=== PATIENT | female | born 1980 | race Caucasian/White ===

== ENCOUNTER → 2017-10-16 16:42 | Outpatient (CLI) | payer OTHER, SELFPAY ==
[2017-10-16 17:47] LABS: hCG Titer Quant., Serum 886 mIU/mL (<9 non-preg)
== END ==
PROVIDERS: Visit Provider Obstetrics & Gynecology
DX: Z32.01 Encounter for pregnancy test, result positive (principal)
CPT/HCPCS: 36415; 84702

== ENCOUNTER → 2017-10-18 11:37 | Outpatient (CLI) | payer OTHER, SELFPAY ==
[2017-10-18 14:49] LABS: hCG Titer Quant., Serum 1867 mIU/mL (<9 non-preg)
== END ==
PROVIDERS: Visit Provider Obstetrics & Gynecology
DX: Z32.01 Encounter for pregnancy test, result positive (principal); Z3A.00 Weeks of gestation of pregnancy not specified
CPT/HCPCS: 36415; 84702

== ENCOUNTER → 2017-11-12 10:16 | Outpatient (CLI) | payer OTHER, SELFPAY ==
[2017-11-12 10:52] LABS: Color, Urine Yellow (Yellow); Glucose, Dipstick Normal (Normal); Ketone-Dipstick Negative (Negative); Leukocyte Esterase-Dipstick 25 /ul (Negative); Nitrite-Dipstick Negative (Negative); Occult Blood-Urine Negative /ul (Negative); Protein-Dipstick Negative (Negative); Urine Bilirubin Dipstick Negative (Negative); Urine Clarity Sl. Cloudy (Clear); Urine Urobilinogen Normal (Normal)
[2017-11-12 10:54] LABS: Absolute Lymphocyte Count 2.08 X10^3/ul (0.83-4.51); Basophil# 0.02 X10^3/uL; Basophil% 0.2 % (0-1); Eosinophil# 0.12 X10^3/uL; Eosinophils% 1.2 % (0-5); Hematocrit 41.6 % (37-47); Hemoglobin 14.1 g/dl (12.0-15.0); Lymphocyte # 2.08 X10^3/ul (4.0); Mean Corp Hgb Conc 33.9 g/gl (32-36); Mean Corpuscular Hgb 30.4 pg (27.0-32.0); Mean Corpuscular Volume 89.7 fL (81-99); Mean Platelet Vol. 10.2 fl (6.2-12.0); Monocyte# 0.66 X10^3/uL; Monocyte% 6.7 % (0-10); Neutrophil % 70.6 % (47-70); Platelet Count 282 K/mm3 (150-450); RBC Distribution Width CV 12.1 % (11.6-14.6); Red Blood Count 4.64 M/mm3 (4.2-5.4); White Blood Count 9.9 K/mm3 (4.4-11.0)
[2017-11-12 10:56] LABS: POSITIVE COUNT NO; POSITIVE DIFFERENTIAL NO; POSITIVE MORPHOLOGY NO
[2017-11-12 11:28] LABS: Thyroid Stim Hormone (TSH) 2.49 uIU/mL (0.358-3.74)
[2017-11-12 12:26] LABS: HIV - WCH Non-Reactive (Nonreactive); Rubella IgG 47.6 IU/mL
[2017-11-12 15:47] LABS: Chlamydia Trachomatis by PCR Negative (Negative); Neisserai gonorrhoeae by PCR Negative (Negative); Probe Check PASS; Sample Adequacy Control PASS; Specimen Processing Control PASS
[2017-11-13 11:22] LABS: HEPATITIS B SURFACE AG Negative (Negative); Hep C Antibodies <0.1 s/co ratio (0.0-0.9)
[2017-11-16 02:58] LABS: Prenatal RPR NONREACTIVE (NONREACTIVE)
[2017-11-16 14:17] LABS: HPV Reflexed? NOT INDICATED
[2017-11-18 06:16] LABS: PARVOVIRUS B19 IGG 5.2 index (0.0-0.8); PARVOVIRUS B19 IGM 0.1 index (0.0-0.8)
== END ==
PROVIDERS: Visit Provider Obstetrics & Gynecology
DX: Z34.81 Encounter for supervision of other normal pregnancy, first trimester (principal); Z12.4 Encounter for screening for malignant neoplasm of cervix; Z11.3 Encounter for screening for infections with a predominantly sexual mode of transmission; Z20.828 Contact with and (suspected) exposure to other viral communicable diseases
CPT/HCPCS: 36415; 81002; 84443; 85025; 86703; 86747; 86762; 86803; 87340; 87491; 87591; 88175; G0145

== ENCOUNTER → 2018-03-29 09:13 | Outpatient (CLI) | payer OTHER, SELFPAY ==
--- OUTSIDE RECORDS SUMMARY | 2018-03-29 09:49 | XMS RPT_ITS ---
:1980 Author Organization OHIP Support Name Relationship Address Phone NORSCH Unavailable [address] + [address] [place] [address] MIREILLE, GUILLERMO Unavailable [address] + [place] [address] NORSCH Unavailable [address] + [address] [place] [address] MIREILLE, GUILLERMO Unavailable [address] + [place] [address] NORSCH Unavailable [address] + [address] [place] [address] MIREILLE, GUILLERMO Unavailable [address] + [place] [address] NORSCH Unavailable [address] + [address] [place] [address] MIREILLE, GUILLERMO Unavailable [address] + [place] [address] NORSCH Unavailable [address] + [place] [address] MIREILLE, GUILLERMO Unavailable [address] + [place] [address] NORSCH Unavailable [address] + [place] [address] MIREILLE, GUILLERMO Unavailable [address] + [place] [address] NORSCH Unavailable [address] + [place] [address] MIREILLE, GUILLERMO Unavailable [address] + [place] [address] NORSCH Unavailable [address] + [place] [address] MIREILLE, GUILLERMO Unavailable [address] + [place] [address] NORSCH Unavailable [address] + [place] [address] MIREILLE, GUILLERMO Unavailable [address] + [place] [address] Care Team Providers Name Role Phone Francine Dior Attending Unavailable Martha Geronimo Attending Unavailable Nance, Jose Primary Care Unavailable Martha Geronimo Attending Unavailable Nance, Jose Primary Care Unavailable Martha Geronimo Attending Unavailable Nance, Jose Primary Care Unavailable Pepe Robledo Attending Unavailable Nance, Jose Primary Care Unavailable Martha Geronimo Attending Unavailable Nance, Jose Primary Care Unavailable Martha Geronimo Attending Unavailable Nance, Jose Primary Care Unavailable Juanpablo, Martha Attending Unavailable Francine Dior Attending Unavailable PROBLEMS PROBLEMS DATE TYPE CONDITION / CODE ATTENDING STATUS SOURCE 03/29/2018 Unknown Z34.82 - Encounter Francine Dior Active [facility] for supervision of [facility] other normal Hospital , second Repository trimester / Z34.82(ICD-10) 11/14/2017 Unknown Z34.81 - Encounter Martha Geronimo Active [facility] for supervision of Community other normal Hospital , first Repository trimester / Z34.81(ICD-10) 10/18/2017 Unknown Z32.01 - Encounter Martha Geronimo Active [facility] for test, [facility] result positive / Hospital Z32.01(ICD-10) Repository 07/31/2017 Unknown OTHER PRIMARY Sunitha Robledo THROMBOPHILIA / [facility] D68.59(ICD-10) Hospital Repository 07/31/2017 Unknown PREG CARE FOR Martha Geronimo [facility] PATIENT W RECURRENT Community PREG LOSS, [facility] Hospital TRIMESTER / Repository O26.20(ICD-10) 07/31/2017 Unknown FEMALE INFERTILITY, Martha Geronimo Active [facility] UNSPECIFIED / Community N97.9(ICD-10) Hospital Repository 07/31/2017 Unknown WEEKS OF GESTATION Martha Geronimo Active Corinne OF NOT Community SPECIFIED / Hospital Z3A.00(ICD-10) Repository 07/31/2017 Unknown SECONDARY Martha Geronimo Active [facility] AMENORRHEA / Community N91.1(ICD-10) Hospital Repository 07/31/2017 Unknown MISSED / Martha Geronimo Active [facility] O02.1(ICD-10) [facility] Hospital Repository 07/31/2017 Unknown ENCNTR SCREEN FOR Francine Dior Active [facility] INFECTIONS W SEXL Community MODE OF TRANSMISS / Hospital Z11.3(ICD-10) Repository PROCEDURES PROCEDURES No Procedure Records FoundRESULTS RESULTS URINE DRUG SCREEN Collected: 11/12/2017 Status: P Source: [facility] (VISTA) 10:23 AM [facility] REPOSITORY Order Comment: List of Drugs Taken or Suspected? UNK TYPE CODE TESTS RESULT OUT OF RANGE REFERENCE UNITS LAB L505.0075 Normal TO BE CONFIRMED Result Comment: CONFIRMATORY TESTING FOR ALL POSITIVE URINE DRUG SCREENRESULTS WILL ONLY BE SENT OUT UPON PHYSICIAN ORDER.VISTA Urine Drug Screen methods provide only preliminaryanalytical test results. A more specific alternate chemicalmethod must be used in order to obtain a confirmedanalytical result. Gas chromatography/mass spectrometery(GC/MS) is the preferred confirmatory method. Clinicalconsideration and professional judgement should be appliedto any drug of abuse test result, particularly whenpreliminary positive results are used.URINE TCA TESTING MUST BE ORDERED SEPARATELY. USE TESTMNEMONIC: UTCA Performed By: #### L505.4999 ####[facility] [address] [facility] [place], [address] URINALYSIS, ROUTINE Collected: 11/12/2017 Status: F Source: [facility] (DIPSTICK) 10:23 AM [facility] REPOSITORY Order Comment: How was Urine Obtained? Urine, Random TYPE CODE TESTS RESULT OUT OF RANGE REFERENCE UNITS LAB L400.3000 Normal Yellow COLOR Yellow LAB L400.3050 Normal Clear CLARITY Sl. Cloudy LAB L400.3200 Normal Normal mg/dl GLUCOSE, UR Normal LAB L400.3300 Normal Negative mg/dL BILIRUBIN Negative URINE LAB L400.3400 Normal Negative mg/dl KETONE UR Negative LAB L400.3465 Normal 1.002-1.030 SP.GR. 1.010 DIPSTX LAB L400.3550 Normal 5.0 - 8.0 pH UR 7.0 LAB L400.3600 Normal Negative mg/dl PROT DIPSTX Negative LAB L400.3700 Normal Normal mg/dl UROBILI Normal LAB L400.3750 Normal Negative NITRITE UR Negative LAB L400.3780 Normal Negative /ul OCCULT Negative BLOOD-UR LAB L400.3800 High Negative /ul LEUK 25 ESTERASE Performed By: #### L400.2010 ####[facility] [address] [place], [address] CBC W/DIFF, AUTOMATED Collected: 11/12/2017 Status: F Source: [place] 10:23 AM [facility] REPOSITORY TYPE CODE TESTS RESULT OUT OF RANGE REFERENCE UNITS LAB L100.1000 Normal 4.4-11.0 K/mm3 WBC 9.9 LAB L100.1200 Normal 4.2-5.4 M/mm3 RBC 4.64 LAB L100.1300 Normal 12.0-15.0 g/dl HGB 14.1 LAB L100.1400 Normal 37-47 % HCT 41.6 LAB L100.1500 Normal 81-99 fL MCV 89.7 LAB L100.1600 Normal 27.0-32.0 pg MCH 30.4 LAB L100.1700 Normal 32-36 g/gl MCHC 33.9 LAB L100.1810 Normal 11.6-14.6 % RDW 12.1 CV LAB L100.1820 Normal 35.1-43.9 fl RDW 39.0 SD LAB L100.1900 Normal 150-450 K/mm3 PLT 282 LAB L100.2000 Normal 6.2-12.0 fl MPV 10.2 LAB L100.2100 High 47-70 % NEUT% 70.6 LAB L100.2200 Normal 19-41 % LY% 21.0 LAB L100.2300 Normal 0-10 % MONO% 6.7 LAB L100.2400 Normal 0-5 % EO% 1.2 LAB L100.2500 Normal 0-1 % BASO% 0.2 LAB L100.2550 Normal 0.0-0.9 % IM 0.300 GRAN % Result Comment: IG% - Immature Granulocytes (promyelocytes, myelocytes andmetamyelocytes) > 1% indicates that a LEFT SHIFT is Present. LAB L100.2620 Normal 2.0-7.7 X10 3/uL Absolute Neut 7.0 LAB L100.2720 Normal 0.83-4.51 X10 3/ul Absolute Lymph 2.08 Performed By: #### L100.0100 ####[facility] [address] [place], [address] THYROID STIM HORMONE Collected: 11/12/2017 Status: F Source: [facility] (TSH) 10:23 AM [facility] REPOSITORY TYPE CODE TESTS RESULT OUT OF RANGE REFERENCE UNITS LAB L501.9520 Normal 0.358-3.74 uIU/mL TSH 2.49 Performed By: #### L501.9520 ####[facility] [address] [place], [place], [address] T AND S-NO Collected: 11/12/2017 Status: F Source: [facility] CHARGE W/PNP 10:23 AM [facility] REPOSITORY Order Comment: Reason for Type AND Screen/Red Cells: PRENATALSurgery? N TYPE CODE TESTS RESULT OUT OF RANGE REFERENCE UNITS LAB B10.0800 Normal BLOOD O TYPE GEL NEGATIVE LAB B100.4050 Normal Ab NEGATIVE SCREEN GEL Performed By: #### B100.7550 ####[facility] [address] [place], [place], [address] RUBELLA IGG Collected: 11/12/2017 Status: F Source: [place] 10:23 AM [facility] REPOSITORY TYPE CODE TESTS RESULT OUT OF RANGE REFERENCE UNITS LAB L509.4000 Normal IU/mL Rubella 47.6 IgG Result Comment: Antibody results Interpretation of Immune Status < 5 IU/ml Presumed Non-immune 5 - < 10 IU/ml Equivocal > or = 10 IU/ml Presumed Immune Performed By: #### L509.4000, L3890.6005 ####[facility] [address] [place], [place], [address] HIV - [facility] Collected: 11/12/2017 Status: F Source: [place] 10:23 AM [facility] REPOSITORY TYPE CODE TESTS RESULT OUT OF RANGE REFERENCE UNITS LAB L3890.6005 Normal Nonreactive HIV - [facility] Non-Reactive Performed By: #### L509.4000, L3890.6005 ####[facility] [address] [place], [address] HEPATITIS B SURFACE Collected: 11/12/2017 Status: F Source: [facility] AG 10:23 AM [facility] REPOSITORY Order Comment: PARVO IGG AND IGM ADDED TO BLOOD AT [facility]. AYAN WILL FILLOUT ADD ON REQUEST AND FAX BACK TO [facility]. THANK YOU. TYPE CODE TESTS RESULT OUT OF RANGE REFERENCE UNITS LAB L3100.0400 Normal Negative HB Negative SURF AG Result Comment: Performed at: [address] [id number] Director: Jonathan Doss PhD, Phone: [phone] Performed By: #### L3100.0390, L3100.0625, L6999.2099 #### [facility] (refer to report for specific site)refer to report for address and phone number HEPATITIS C ANTIBODIES Collected: 11/12/2017 Status: F Source: [place] 10:23 AM [facility] REPOSITORY Order Comment: PARVO IGG AND IGM ADDED TO BLOOD AT [facility]. AYAN WILL FILLOUT ADD ON REQUEST AND FAX BACK TO [facility]. THANK YOU. TYPE CODE TESTS RESULT OUT OF RANGE REFERENCE UNITS LAB L3100.0650 Normal 0.0-0.9 s/co ratio HEP C <0.1 AB Result Comment: Negative: < 0.8 Indeterminate: 0.8 - 0.9 Positive: > 0.9 The CDC recommends that a positive HCV antibody result be followed up with a HCV Nucleic Acid Amplification test (554526). Performed By: #### L3100.0390, L3100.0625, L6999.2099 #### [facility] (refer to report for specific site)refer to report for address and phone number PARVOVIRUS B19 IGG Collected: 11/12/2017 Status: F Source: [place] AND IGM 10:23 AM [facility] REPOSITORY Order Comment: PARVO IGG AND IGM ADDED TO BLOOD AT [facility]. AYAN WILL FILLOUT ADD ON REQUEST AND FAX BACK TO [facility]. THANK YOU. TYPE CODE TESTS RESULT OUT OF RANGE REFERENCE UNITS LAB L7000.2200 High 0.0-0.8 index PARVO 5.2 B19 IGG Result Comment: Negative <0.9 Equivocal 0.9 - 1.1 Positive >1.1 LAB L7000.2300 Normal 0.0-0.8 index PARVO B19 IGM 0.1 Result Comment: Negative <0.9 Equivocal 0.9 - 1.1 Positive >1.1 Performed By: #### L3100.0390, L3100.0625, L7000.2100 #### [facility] (refer to report for specific site)refer to report for address and phone number RPR Collected: 11/12/2017 Status: F Source: [place] 10:23 AM [facility] REPOSITORY TYPE CODE TESTS RESULT OUT OF REFERENCE UNITS RANGE LAB L700.5100 Normal NONREACTIVE NONREACTIVE RPR Performed By: #### L700.5100 ####[facility] [address] [place], [address] CT/NG [facility] BY PCR Collected: 11/12/2017 Status: F Source: [place] 10:15 AM [facility] REPOSITORY TYPE CODE TESTS RESULT OUT OF RANGE REFERENCE UNITS LAB L8200.2100 Normal Negative Negative Chlam Trac PCR LAB L8200.2200 Normal Negative NG Negative by PCR Performed By: #### L8200.2000 ####[facility] [address] [place], [address] PAP I-G W/RFX HRHPV Collected: 11/12/2017 Status: F Source: [place] 10:15 AM [facility] REPOSITORY Order Comment: CYTOLOGY INFORMATION:- CLINICAL INFORMATION: - DATE LMP/MENOPAUSE: 09/18/17 LMP- COLLECTION VIAL: Thin Prep Vial- WEB GRAPHIC DESIGNER SOURCE: CERVICAL/ENDOCERVICAL- COLLECTION TECHNIQUE: BRUSH/SPATULASpecimen Comment: [id number] Comment: No. of containers..01 ThinPrep Vial TYPE CODE TESTS RESULT OUT OF RANGE REFERENCE UNITS LAB L7400.0800 Normal . DIAGN Comment Result Comment: NEGATIVE FOR INTRAEPITHELIAL LESION AND MALIGNANCY.THIS SPECIMEN WAS RESCREENED PART OF OUR MUSHROOM CULTIVATOR PROGRAM. LAB L7400.0900 Normal . ADEQ Comment Result Comment: Satisfactory for evaluation. Endocervical and/or squamous metaplasticcells (endocervical component) are present. LAB L7400.1400 Normal . PERFORM Comment Result Comment: Raj Junior, Operations Manager Assistant (ASCP) LAB L7400.1500 Normal . QC Comment REV Result Comment: Ailyn Childress, Operations Manager Assistant (ASCP) LAB L7400.2575 Normal . TEST Comment METHOD Result Comment: This liquid based ThinPrep(R) pap test was screened withthe use of an image guided system. LAB L7400.2600 Normal . COMM . LAB L7400.2700 Normal . PAPSMR Comment Result Comment: The Pap smear is a screening test designed to aid in thedetection of premalignant and malignant conditions of theuterine cervix. It is not a diagnostic procedure andshould not be used as the sole means of detecting cervicalcancer. Both false-positive and false-negative reports dooccur. LAB L7400.2800 Normal . HPV Comment RFLX Result Comment: The HPV DNA reflex criteria were not met with this specimenresult therefore, no HPV testing was performed.Performed at: [address] [id number] Director: Lian George MD, Phone: [phone] Performed By: #### L7400.0350 ####[facility] (refer to report for specific site)refer to report for address and phone number HCG TITER QUANT., Collected: 10/18/2017 Status: F Source: [place] SERUM 11:38 AM [facility] REPOSITORY TYPE CODE TESTS RESULT OUT OF RANGE REFERENCE UNITS LAB L700.8000 High <9 non-preg mIU/mL HCG 1867 QUANT. Performed By: #### L700.8000 ####[facility] [address] [facility]. [place], [place], [address] HCG TITER QUANT., Collected: 10/16/2017 Status: F Source: [place] SERUM 4:44 PM [facility] REPOSITORY TYPE CODE TESTS RESULT OUT OF RANGE REFERENCE UNITS LAB L700.8000 High <9 non-preg mIU/mL HCG 886 QUANT. Performed By: #### L700.8000 ####[facility] [address] [place], [address] PROTEIN S DEFIC. Collected: 07/04/2017 Status: F Source: [place] PROFILE 3:16 PM [facility] REPOSITORY Order Comment: Reason for Laboratory Test OFFICE VISIT - TEST #[id number] TYPE CODE TESTS RESULT OUT OF RANGE REFERENCE UNITS LAB L3100.7100 Normal 60-150 % PROTEIN 80 S,TOTAL Result Comment: This test was developed and its performance characteristicsdetermined by [employer]. It has not been cleared orapproved by the Food and Drug Administration. LAB L3100.7200 Normal 57-157 % PROTEIN S, FREE 70 Result Comment: This test was developed and its performance characteristicsdetermined by [employer]. It has not been cleared orapproved by the Food and Drug Administration. LAB L3100.7260 Normal 63-140 % PROTEIN S, FUNC 92 Result Comment: Protein S activity may be falsely increased (masking anabnormal, low result) in patients receiving direct Xainhibitor (e.g. , rivaroxaban, apixaban, edoxaban) or adirect thrombin inhibitor (e.g., dabigatran) anticoagulanttreatment due to assay interference by these drugs.Performed at: [address] [id number] Director: Sagar Irizarry MD, Phone: [phone] Performed By: #### L3100.7075 ####[facility] (refer to report for specific site)refer to report for address and phone number HISTORY AND PHYSICAL Observed: 07/04/2017 Status: F Source: [place] EXAM 2:47 PM [facility] REPOSITORY [facility] [address] [place], [place] [address]Uhufjse and Seofulty53/01/17 1420MR#: [id number] Acct: [id number]: LAURIE KENDRICK Rep #: [id number]: 1980 36 From: Pepe Robledo MDPCP: Jose Toribio MD Status: REG RCR YLocation: OMD(1) Protein S deficiencyStatus: AcuteSubjectiveDate of Service:: 07/04/17Chief Complaint: Low level of protein S following a miscarriageHistory of Present Illness:Patient is a 36-year-old female who is obstetric history can be summarized as: #1 uncomplicated and ended with the of a healthy boy in 2006. #2 ended in an early miscarriage at 6-7 weeks in 2009. #3 uncompleted and ended with the of a healthy boy and 2013. #4 in 2016 and ended with an early miscarriage at 8-9 weeks early April 2017Patient has no personal or family history of venous thromboembolic disease or prematurearterial thrombotic disease. She used control pills without complications for severalyears in the past.A hypercoagulability workup was obtained on May 24, 2017 following her miscarriage andrehildaaled a mildly low free protein S at 56% (normal 57-157%) repeat test on June 14, 2017showed a normal level protein S free antigen of 69%and protein S total antigen normal at 65% (normal 60-150%)The rest of her hypercoagulability testing was essentially negativePower of Assisted Sales Representative: NoLiving Will: NoHealth History:Cancer HistoryOther Cancer History: NONEPast Medical HistoryOther Past Medical History: NONE PER PATIENTPast Surgical HistoryOther Surgical History: D AND CFamily HistoryPaternal Past Medical History: Diabetes mellitus,Kidney diseaseMaternal Past Medical History: Diabetes mellitusSocial HistorySmoking Status Never smokerAllergies/Adverse Reactions:Allergy/AdvReac Type Severity Reaction Status Date / TimeNo Known Allergies Allergy Verified 07/04/17 14:03Home MedicationsMedication Instructions RecordedAspirin, Baby 81 mg PO DAILY 07/04/17Prenatal Gummies 1 tablet PO DAILY 07/04/17Risk FactorsTobacco Risk Data:Tobacco RiskSmoking Status Never smokerType of tobacco:Smokeless tobacco usage:Items/Day:Year started:Years used:Counseled to quit/cut down:Reason for no counselingperformed:Reason for no pharmacotherapy: Tobacco use comments:Passive smoke exposure:Substance RiskDrug use: NoCaffeine use [drinks/day]: 0Alcohol use: NoType of alcohol:Drinks per day:Has patient felt the need tocut down:Has the patient been annoyedby complaints:Has the patient felt guiltyabout drinking:Has the patient needed an eyeopener in the mornings:Comments:Date of last PAP smear:: 06/03/17Review of SystemsCardiovascular:: Reports: - - No lower extremities edema or varicosities. Denies: Chest pain,Palpitations, Dyspnea on exertion, Orthopnea, Shortness of breathRespiratory: Reports: - - No pleuritic type chest pain. Denies: Cough, Hemoptysis, Shortnessof BreathGastrointestinal:: Denies: Abdominal pain, HematocheziaGenitourinary: Denies: HematuriaNeurological:: Reports: - - No history of stroke or focal neurologic illnessObjectiveVital SignsHeight 1.59 mWeight: 52.617 kgWeight in Pounds 116.0 lbsPulse Ox 99- Physical ExamGeneral: Alert, Oriented x3, No apparent distressExtremities:: - - No varicosities. Negative for: Cyanosis, EdemaNeurological: Neuro grossly intactLaboratory Data:Outside lab coagulation studies reviewed and summarized under HPIAssessment and [id number] with 2 unexplained early losses (prior to 10-12 weeks). She has nopersonal or family history of venous thromboembolic disease or premature arterial vasculardisease. She also had to successful full-term pregnancies in 2006 and 2013 and used birthcontrol pills for several years in the past without complications.A mildly low protein S free was noted in May 2017 following loss in April2017. Repeat testing in June 2017 showed a normal level.Hereditary protein S deficiency is very uncommon with the frequency estimated to be less than1% of individuals with venous thromboembolic disease. Data is mixed regarding its role inmiscarriage. No levels of protein S are found in normal pregnancies, or miscarriageand an users of oral hormonal contraceptives.I advise a repeat screen for protein S deficiency today since the findings so far would notsupport a diagnosis of hereditary protein S deficiency. Shunt will be seen in follow-up oncethese results are availablePrimary Care Provider: Alexa Rodriguez Provider: [id number] <Electronically signed by Pepe Robledo MD>Date Pepe Robledo MDCosigner Signature (if applicable): Date CC: Martha Geronimo MD; Jose Toribio MD; Pepe Robledo MD Signed PROTEIN S ANTIGEN Collected: 06/14/2017 Status: F Source: [place] 5:03 PM [facility] REPOSITORY TYPE CODE TESTS RESULT OUT OF RANGE REFERENCE UNITS LAB L3100.7100 Normal 60-150 % PROTEIN 65 S,TOTAL Result Comment: This test was developed and its performance characteristicsdetermined by [facility]. It has not been cleared orapproved by the Food and Drug Administration. LAB L3100.7200 Normal 57-157 % PROTEIN S, FREE 69 Result Comment: This test was developed and its performance characteristicsdetermined by [facility]. It has not been cleared orapproved by the Food and Drug Administration.Performed at: [address] [id number] Director: Sagar Irizarry MD, Phone: [phone] Performed By: #### L3100.7050 ####[facility] (refer to report for specific site)refer to report for address and phone number HEMOGLOBIN A1C Collected: 05/24/2017 Status: F Source: [place] 4:43 PM [facility] REPOSITORY TYPE CODE TESTS RESULT OUT OF RANGE REFERENCE UNITS LAB L501.9985 Normal 4.2-6.3 % HGB 5.4 A1C Performed By: #### L501.9985 ####[facility] [address] [place], [place], [address] FREE T3 Collected: 05/24/2017 Status: F Source: [place] 4:43 PM [facility] REPOSITORY Order Comment: CYCLE DAY Has Patient had X-rays with Contrast this admission? NIs Patient on Heparin? N TYPE CODE TESTS RESULT OUT OF RANGE REFERENCE UNITS LAB L501.42528 Normal 2.18-3.98 pg/mL FREE 2.5 T3 Performed By: #### L501.61882, L501.9520, L506.0400, L3300.1750 ####[facility] [address] [place], [place], [address] THYROID STIM HORMONE Collected: 05/24/2017 Status: F Source: [place] (TSH) 4:43 PM [facility] REPOSITORY Order Comment: CYCLE DAY 19Has Patient had X-rays with Contrast this admission? NIs Patient on Heparin? N TYPE CODE TESTS RESULT OUT OF RANGE REFERENCE UNITS LAB L501.9520 Normal 0.358-3.74 uIU/mL TSH 2.17 Performed By: #### L501.23912, L501.9520, L506.0400, L3300.1750 ####[facility] [address] [place], [address] T4 FREE DIRECT Collected: 05/24/2017 Status: F Source: [place] 4:43 PM [facility] REPOSITORY Order Comment: CYCLE DAY 19Has Patient had X-rays with Contrast this admission? NIs Patient on Heparin? N TYPE CODE TESTS RESULT OUT OF RANGE REFERENCE UNITS LAB L506.0400 Normal 0.76-1.46 ng/dL T4 FREE 1.04 DIRECT Performed By: #### L501.88902, L501.9520, L506.0400, L3300.1750 ####[facility] [address] [place], [address] ESTRADIOL Collected: 05/24/2017 Status: F Source: [place] 4:43 PM [facility] REPOSITORY Order Comment: CYCLE DAY 19Has Patient had X-rays with Contrast this admission? NIs Patient on Heparin? N TYPE CODE TESTS RESULT OUT OF RANGE REFERENCE UNITS LAB L3300.1750 Normal pg/mL ESTRADIOL 82.5 Result Comment: NORMAL REFERENCE RANGES FEMALE FOLLICULAR 21.4 - 164.8 pg/mL MID-CYCLE PEAK 49.9 - 367.2 pg/mL LUTEAL 40.2 - 259.0 pg/mL POST-MENOPAUSAL ON MHT <11.0 - 462.1 pg/mL NOT ON MHT <11.0 - 58.3 pg/mL MALE <11.0 - 52.5 pg/mLNOTE:[facility] HAS CONFIRMED THE DRUG FULVETRANT (FASLODEX) MAYCAUSE FALSELY ELEVATED ESTRADIOL RESULTS WHEN USING THISTEST METHOD. IF PATIENT IS TAKING FULVESTRANT AN ALTERNATIVEMETHOD SHOULD BE USED TO DETERMINE ESTRADIOL CONCENTRATION. Performed By: #### L501.44297, L501.9520, L506.0400, L3300.1750 ####[facility] [address] [place], [place], [address] PROGESTERONE LEVEL Collected: 05/24/2017 Status: F Source: [place] 4:43 PM [facility] REPOSIT[facility] TYPE CODE TESTS RESULT OUT OF REFERENCE UNITS RANGE LAB L509.4001 Normal See Comment ng/mL Progesterone 15.85 Result Comment: Progesterone Reference Table: UNITS Female: Follicular 0.15 - 1.40 ng/mL Luteal 3.34 - 25.56 ng/mL Mid-luteal 4.44 - 28.03 ng/mL Postmenopausal 0.0 - 0.73 ng/mL : 1st Trimester 11.22 - 90.00 ng/mL 2nd Trimester 25.55 - 89.40 ng/mL 3rd Trimester 48.40 -422.50 ng/mL Performed By: #### L509.4001, L509.3000 ####[facility] [address] [place], [place], [address] TESTOSTERONE, SERUM TOTAL Collected: 05/24/2017 Status: F Source: [place] 4:43 PM [facility] REPOSITORY TYPE CODE TESTS RESULT OUT OF REFERENCE UNITS RANGE LAB L509.3000 Normal 14-76 ng/dL Testosterone 53 Performed By: #### L509.4001, L509.3000 ####[facility] [address] [place], [place], [address] FACT V LEIDEN Collected: 05/24/2017 Status: F Source: [place] MUTATION 4:43 PM [facility] REPOSITORY TYPE CODE TESTS RESULT OUT OF RANGE REFERENCE UNITS LAB L4500.5100 Normal . Comment FACTOR V LEIDEN Result Comment: Result: Negative (no mutation found) Factor V Leiden is a specific mutation (R506Q) in the factorV gene that is associated with an increased risk of venousthrombosis. Factor V Leiden is more resistant toinactivation by activated protein C. As a result, factor Vpersists in the circulation leading to a mild hyper-coagulable state. The Leiden mutation accounts for 90% -95% of APC resistance. Factor V Leiden has been reported inpatients with deep vein thrombosis, pulmonary embolus,central retinal vein occlusion, cerebral sinus thrombosisand hepatic vein thrombosis. Other risk factors to beconsidered in the workup for venous thrombosis include [id number] mutation in the factor II (prothrombin) gene, protein S and C deficiency, and antithrombin deficiencies.Anticardiolipin antibody and lupus anticoagulant analysismay be appropriate for certain patients, as well ashomocysteine levels.Contact your local [facility] for information on how to orderadditional testing if desired. LAB L4500.5200 Normal . COMMENT Comment Result Comment: Genetic counselors are available for health careproviders to discuss results at [phone]:DNA analysis of the Factor V gene was performed by allele-specific PCR. The diagnostic sensitivity and specificity is>99% for both. Molecular-based testing is highly accurate,but as in any laboratory test, diagnostic errors may occur.All test results must be combined with clinical informationfor the most accurate interpretation.This test was developed and its performance characteristicsdetermined by [facility]. It has not been cleared or approvedby the Food and Drug Administration.References:Robert Lara (1995). Clin Lab Med 16:169- 186.Katty Wong, PhD, Dimple Bernardo, PhD, Jimmy Hodges, PhD, oJse Blanchard MJessicaSJessica, PhD, Cathie Castro, PhD, Luis Song, PhD, Noreen Rhodes PhD, FACMGPerformed at: [facility] [id number] [place], [place] [id number] Director: Juni Lugo MD, Phone: [phone] Performed By: #### L4500.5000 ####[facility] (refer to report for specific site)refer to report for address and phone number THROMBOTIC RISK Collected: 05/24/2017 Status: F Source: [place] PROFILE 4:43 PM [facility] REPOSITORY TYPE CODE TESTS RESULT OUT OF RANGE REFERENCE UNITS LAB L804.3000 Normal 2.0-3.5 ratio APCR 2.1 Result Comment: The APCR result may be falsely increased ( masking anabnormal, low APCR result) in patients on direct Xainhibitor (e.g., rivaroxaban, apixaban, edoxaban) or adirect thrombin inhibitor (e.g., dabigatran) anticoagulanttherapy due to assay interference by these drugs. LAB L804.4100 Normal 0.0-55.0 sec dPT 39.8 LAB L804.4200 Normal 0.00-1.40 Ratio dPT % 0.97 LAB L3100.7200 Low 57-157 % PROTEIN S, FREE 56 Result Comment: This test was developed and its performance characteristicsdetermined by [employer]. It has not been cleared orapproved by the Food and Drug Administration.A deficiency of free protein S antigen (FPS), eithercongenital or acquired, increases the risk ofthromboembolism. Acquired FPS deficiency is more commonthan congenital deficiency. Acquired deficiency can occuras a result of vitamin K deficiency or antagonism, severehepatic disorders ( hepatitis, cirrhosis, etc.), nephroticsyndrome, inflammatory bowel disease, certainchemotherapeutic agents, L-asparaginse therapy, sepsis,disseminated intravascular coagulation (DIC) and acutethrombosis. FPS values decrease with normal , andare also dependent on age, sex and hormone status. FPSvalues tend to be lower in a younger age group and lower inwomen than in men. Levels may be decreased inpre-menopausal women on oral contraceptive agents. Levelsmay be decreased in patients with polycythemia vera, sicklecell disease and essential thombocythemia. Repeatevaluation on a new plasma sample to confirm or refute thisresult should be considered, after ruling out acquiredcauses, depending on the clinical scenario. LAB L3100.7325 Normal 73-180 % PROT C, Funct 128 LAB L3100.8420 Normal 0-14 GPL U/mL ANTICARDIO IgG < 9 Result Comment: Negative: <15 Indeterminate: 15 - 20 Low-Med Positive: >20 - 80 High Positive: & gt;80 LAB L3100.8425 Normal 0-12 MPL U/mL ANTICARDIO IgM < 9 Result Comment: Negative: <13 Indeterminate: 13 - 20 Low-Med Positive: >20 - 80 High Positive: & gt;80 LAB L3300.0500 Normal 75-135 % AT3 FUNCTION 126 Result Comment: Direct thrombin inhibitor anticoagulants such asrivaroxaban, apixaban and edoxaban will lead to spuriouslyelevated antithrombin activity levels possibly masking adeficiency. LAB L3300.2000 Normal 0.0-15.0 umol/L HOMOCYSTEINE 7.1 LAB L3400.3200 Normal 70-150 % Plasminogen Act 125 LAB L3410.2100 Normal 0-20 B2 GLYCO I IGG <9 Result Comment: Result Units: GPI IgG unitsThe reference interval reflects a 3SD or 99th percentileinterval, which is thought to represent a potentiallyclinically significant result in accordance with theInternational Consensus Statement on the classificationcriteria for definitive antiphospholipid syndrome (APS). JThromb Haem 2006;4:295-306. LAB L3410.2300 Normal 0-32 B2 <9 GLYCO I IGM Result Comment: Result Units: GPI IgM unitsThe reference interval reflects a 3SD or 99th percentileinterval, which is thought to represent a potentiallyclinically significant result in accordance with theInternational Consensus Statement on the classificationcriteria for definitive antiphospholipid syndrome (APS). JThromb Haem 2006;4:295-306. LAB L4500.0605 Normal 0.0-51.9 sec PTT-LA 34.4 LAB L4500.1015 Normal 0.0-47.0 sec DRVVT 32.5 LAB L4500.1310 Normal . Interpretation Comment: Result Comment: No lupus anticoagulant was detected. LAB L4500.2600 Normal . COMMENT Comment Result Comment: NEGATIVENo mutation identified.Comment:A point mutation ([id number]) in the factor II (prothrombin)gene is the second most common cause of inheritedthrombophilia. The incidence of this mutation in the [place] population is about 2% and in the AfricanAmerican population it is approximately 0.5%. This mutationis rare in the and population. Beingheterozygous for a prothrombin mutation increases the riskfor developing venous thrombosis about 2 to 3 times abovethe general population risk. Being homozygous for theprothrombin gene mutation increases the relative risk forvenous thrombosis further, although it is not yet known howmuch further the risk is increased. In women heterozygousfor the prothrombin gene mutation, the use of estrogencontaining oral contraceptives increases the relative riskof venous thrombosis about 16 times and the risk ofdeveloping cerebral thrombosis is also significantlyincreased. In the prothrombin gene mutationincreases risk for venous thrombosis and may increaserisk for stillbirth, placental abruption, pre-eclampsia andfetal growth restriction. If the patient possesses two ormore congenital or acquired thrombophilic risk factors, therisk for thrombosis may rise to more than the sum of therisk ratios for the individual mutations. This assaydetects only the prothrombin [id number] mutation and doesnot measure genetic abnormalities elsewhere in thegenome. Other thrombotic risk factors may be pursuedthrough systematic clinical laboratory analysis. Thesefactors include the R506Q (Leiden) mutation in the Factor Vgene, plasma homocysteine levels, as well as testing fordeficiencies of antithrombin III, protein C and protein S.Genetic Counselors are available for health care providersto discuss results at [phone] ([phone]).Methodology:DNA analysis of the Factor II gene was performed by PCRamplification followed by restriction analysis. Thediagnostic sensitivity is >99% for both. All the tests mustbe combined with clinical information for the most accurateinterpretation. Molecular-based testing is highly accurate,but as in any laboratory test, diagnostic errors may occur.This test was developed and its performance characteristicsdetermined by [employer]. It has not been cleared or approvedby the Food and Drug Administration.Poort SR, et al. Blood. 1996; 88:8459-7983.Blanka EA. Circulation. 2004; 110:e15-e18.Asmita I, et al. Arterioscler Thromb Vasc Biol. 1999;19:700-703.Katty Wong, PhD, Dimple Bernardo, PhD, Jimmy Hodges, PhD, Jose Blanchard M.S., PhD, Cathie Castro, PhD, Luis Song, PhD, Noreen Rhodes, PhD, FACMGPerformed at: [facility] [id number] Director: Jonathan Doss PhD, Phone: [phone] at: [facility] [id number] Director: Sagar Irizarry MD, Phone: [phone] at: [facility]CoMemorial [facility] CenterQMB[address] [place], [place] [address]Fau Director: Juni Lugo MD, Phone: [phone] Performed By: #### L803.4000 ####[facility] (refer to report for specific site)refer to report for address and phone number OPERATIVE REPORT Observed: 04/12/2017 Status: F Source: [place] 3:58 PM [facility] REPOSITORY [facility] [address] [place] [address]Htriztnko Qrfepu13/10/17 1551MR#: [id number] Acct: [id number]: LAURIE KENDRICK Rep #: [id number]: 1980 36 From: Martha Geronimo MDPCP: Jose Toribio MD Status: REG [facility] YLocation: AC [id number] List(1) Missed abortionStatus: AcuteReport of OperationDate of Procedure: 04/12/17Pre-Operative Diagnosis: missed abPost-Operative Diagnosis: missed abSurgery/Procedure Performed:: Suction D and CDescription of Surgical Findings::Uterus found to be in the retroflexed position. The uterus measured approximately 9 cm.Bilateral adnexa were benign upon examination. The cervix was noted to be benign uponexamination. Cervix was easily dilated to accommodate a 7 curved suction device.Type of Anesthesia:: MAC - 1% lidocaine to the cervix 10cc totalAnesthesiologist: Ro Dwyer'rafa removed: Products of conceptionEstimated Blood Loss (mL): minimalFluids Replaced: Lactated ringersDescription of Procedure:Patient is a 36-year-old multigravid white female who presents with missed AB dated atapproximately 6 weeks estimated gestational age. Patient had undergone multiple ultrasounds toverify the missed AB. The patient had been given options of self passage of the products ofconception versus a suction D AND C. The preop preparation for the suction D AND C along withintraoperative procedures as well as the postop time period were reviewed with the patient.The risk of bleeding, infection and uterine perforation were reviewed with the patient.Consents were obtained all was accepted. On the day of surgery patient presented after being 8hours minimum n.p.o. status.Patient was taken to the operating suite where she underwent a MAC anesthetic. Once a MACanesthetic was noted to be adequate she was placed in the dorsal lithotomy position. Thepatient was then prepped and draped in the normal sterile fashion. A weighted speculum wasplaced to the vaginal vault area. The bladder had been emptied of all remaining urine with astraight catheter prior to weighted speculum being placed. The anterior lip of the cervix wasgrasped and elevated with a single-tooth tenaculum. The uterus was then sounded toapproximately 9 cm in a retroflexed position. The 1% lidocaine was then placed to the 4quadrants of the cervix which the patient tolerated well. Cervical eyes was then dilatedeasily to accommodate a 7 cm curved suction device. The 7 cm curved suction device wasassembled with vacuuming and sequential removal of products of conception occurred. Lightcurettage of the entire endometrial cavity gathered additional products of conception.Suctioning of the endometrial cavity once again occurred. Hemostasis was noted. Allinstruments were removed from the vagina. Sponge and instrument counts were correct 2 wasawakened in stable condition, taken to recovery room to be discharged home with follow-up inthe office in 1 week's time.- Complicationsnone- Admit VTE DocumentationVTE Present on Admission: NoVTE Mechan Device Prophylaxis: SCD'sVTE Pharm Prophylaxis ordered?: NoReason prophylaxis not ordered:: Treatment Not Oozgxxnse98/10/17 1558 <Electronically signed by Martha Geronimo MD>Date Martha Geronimo MDCC: Martha Geronimo MD; Jose Toribio MD Signed DISCHARGE INSTRUCTION Observed: 04/12/2017 Status: F Source: [place] 3:43 PM [facility] REPOSITORY [facility] [address] [place], [place] [address]Pncakjvgmueq for Home/Discharge Dufhmvxkcbbn06/10/17 1542MR #: [id number] Acct: [id number]: LAURIE KENDRICK Rep #: [id number]: 1980 36 From: Martha Geronimo MDPCP: Jose Toribio MD Status: REG SDCDischarge Diet: No Restrictions, - - increase water intake to 100 ounces x 72 hoursDischarge Activity: Return to Normal Activity, May Shower, May Take a Tub Bath - in 2 weeks.May shower in (days): 0 - TODAYMay resume sexual activity in: 1 weekWeight Bearing Status: Full weight bearingLifting Restrictions: noneCall your doctor if your incision/area has: Sudden Increased BleedingCall your doctor if you observe: Fever of 101 or Higher, Inability to urinate, Inability tohave a bowel movement, Using more than one pad per hourAllergies/Adverse Reactions:AllergiesNo Known Allergies Allergy (Verified 12/24/13 11:16)Medications to take at DischargeNo Known/Unobtainable [No Known Home Medications] 04/11/17Primary Care Physician:Jose Toribio MD [Primary Care Provider] -Please Follow Up With: Jay Geronimo: next week - please call for mdlkvmvqjec95/10/17 9664 <Electronically signed by Martha Geronimo MD> Date Martha Geronimo MDCC: Jose Toribio MD OPERATIVE REPORT Observed: 04/12/2017 Status: F Source: [place] 3:42 PM [facility] REPOSITORY [facility] [address] [place], [place] [address]Kkenkebjd Sbqhwj24/10/17 1540MR#: [id number] Acct: [id number]: LAURIE KENDRICK Rep #: [id number]: 1980 36 From: Martha Geronimo MDPCP: Jose Toribio MD Status: REG [facility] YLocation: [facility]0Dvveaxh List(1) Missed abortionStatus: AcuteOperative ReportDate of Procedure: 04/12/17Preop: Missed abPostop: SameProcedure: Suction D and CSurgeon: ShrinerEBL: minimalFluids: Lactated ringersMeds: Cefotetan 2 grams Iv preop and 1% Lidocaine 10cc local to cervixAnesthesia: MACUrine: straight cath04/12/17 3350 <Electronically signed by Martha Geronimo MD>Date Martha Geronimo [facility]: Martha Geronimo MD; Jose Toribio MD Signed PRODUCTS OF CONCEPTION Observed: 04/12/2017 Status: F Source: [place] 3:27 PM [facility] REPOSITORY Patient: LAURIE KENDRICK : 1980 (36/F) Acct Num: [id number] Phys: Juanpablo NUNEZ,Martha Unit Num: [id number] Loc: [facility] Specimen: [id number] Received: 04/13/17 - 1420 Spec Type: PROD CONC TISSUES TISSUES: GROSS DESCRIPTION Received in fixative is one container labeled with the patient's name and designated products of conception. The specimen consists of multiple pieces of calvin-pink soft tissue that in aggregate measure 5 x 5 x 2 cm. No tissueis identified. Resource Conservation Manager tissue is submitted in two cassettes. / SJ:sylwia 04/13/17 TC:5 CPT: 41797 HEADER OPERATION: D AND C suction PRE-OP DIAGNOSIS: Missed AB TISSUE SUBMITTED: Products of conception MICROSCOPIC DESCRIPTION Slides are reviewed. MICROSCOPIC DIAGNOSIS Endometrium, curettage: Chorionic villi, decidualized stroma and trophoblastic cells consistent with products of conception. AM: sylwia 04/16/17 Signed Cristóbal [facility] 04/16/17 <signature on file> Performed By: #### PPOC ####[facility] [address] [place], [address] CBC-COMPLETE BLOOD CNT Collected: 04/12/2017 Status: F Source: [place] NO DIFF 1:50 PM [facility] REPOSITORY TYPE CODE TESTS RESULT OUT OF RANGE REFERENCE UNITS LAB L100.1000 Normal 4.4-11.0 K/mm3 WBC 9.9 LAB L100.1200 Normal 4.2-5.4 M/mm3 RBC 4.32 LAB L100.1300 Normal 12.0-15.0 g/dl HGB 13.2 LAB L100.1400 Normal 37-47 % HCT 38.8 LAB L100.1500 Normal 81-99 fL MCV 89.8 LAB L100.1600 Normal 27.0-32.0 pg MCH 30.6 LAB L100.1700 Normal 32-36 g/gl MCHC 34.0 LAB L100.1810 Normal 11.6-14.6 % RDW 12.4 CV LAB L100.1820 Normal 35.1-43.9 fl RDW 40.2 SD LAB L100.1900 Normal 150-450 K/mm3 PLT 268 LAB L100.2000 Normal 6.2-12.0 fl MPV 9.8 Performed By: #### L100.0500 ####[facility] [address] [place], [address] TYPE AND SCREEN Collected: 04/12/2017 Status: F Source: [place] 1:50 PM [facility] REPOSITORY Order Comment: Has pt arrived? YReason for Type AND Screen/Red Cells: SURGERY TYPE CODE TESTS RESULT OUT OF RANGE REFERENCE UNITS LAB B10.0800 Normal BLOOD O TYPE GEL NEGATIVE LAB B100.4000 Normal Antibody NEGATIVE Screen Performed By: #### B101.7450 ####[facility] [address] [place], [place], [address] RHOGAM Collected: 04/12/2017 Status: F Source: [place] 1:50 PM [facility] REPOSITORY TYPE CODE TESTS RESULT OUT OF REFERENCE UNITS RANGE LAB U100.2500 [id number] TRANSFUSED PRODUCT: Rho(D) Immune Globulin RhoGam COUNT: 1 Performed By: #### U100.2500 ####Non-[facility] Laboratory - refer to report for specific site CT/NG W[facility] BY PCR Collected: 03/30/2017 Status: F Source: [place] 2:30 PM [facility] REPOSITORY TYPE CODE TESTS RESULT OUT OF RANGE REFERENCE UNITS LAB L8200.2100 Normal Negative Negative Chlam Trac PCR LAB L8200.2200 Normal Negative NG Negative by PCR Performed By: #### L8200.1999 ####[facility] [address] [place], [place], [address] ALLERGIES ALLERGIES DATE TYPE / CODE NAME / CODE REACTION SEVERITY SOURCE 07/04/2017 Drug No Known Unknown [facility] Allergy/4160 Allergies/F00 Hospital 00162(SNOMED 7832839(RXNOR Repository CT) M) 07/04/2017 Drug No Known [place] [facility] Allergy/4160 Allergies/F00 Hospital 65863(SNOMED 1878138(RXNOR Repository CT) M) ENCOUNTERS ENCOUNTERS ADMIT/DISCHARGE ACCOUNT ADMITTING ENCOUNTER LOCATION SOURCE NUMBER CLASS 03/29/2018 [id number] Ambulatory Corinne [place] 4 [facility] ing:WOBLAB Repository 11/12/2017 [id number] Ambulatory Corinne Corinne 4 [facility] ing:WOBLAB Repository 10/18/2017 [id number] Ambulatory Yohana Yohana 3 [facility] ing:WOBLAB Repository 10/16/2017 [id number] Ambulatory Yohana Corinne 1 [facility] ing:LAB.FUTUR Repository E 07/04/2017 [id number] Ambulatory Corinne Corinne 6 [facility] ing:OMD Repository 06/14/2017 [id number] Ambulatory Corinne Yohana 2 [facility] ing:LAB Repository 05/24/2017 [id number] Ambulatory Yohana Yohana 6 [facility] ing:LAB Repository 04/12/2017/ [id number] Ambulatory Yohana Corinne 7 5 [facility] ing:SDCRoom: Repository AC17 03/30/2017 [id number] Ambulatory Corinne Yoh[place] 0 [facility] ing:LABSPEC Repository PAYERS PAYERS ENCOUNTER GUARANTOR PAYER SUBSCRIBER SOURCE 03/29/2018 Laurie [id number] Primary Laurie RuppDOB: Corinne Spruce Insurance:MEDICAL [id number] [id number]: (330) Number: Repository [phone] ) [id number] Date:4019-25-48YK [address] [place] [address]EZ: 03/29/2018 Secondary NOT GIVENUNK Corinne Insurance:SELF PAY [facility] Number: Effective Repository Date:2018-03-29 11/12/2017 Laurie [id number] Primary Laurie RuppDOB: Corinne Spruce Insurance:MEDICAL [id number] Health Preble [id number]: (330) Number: Repository [phone] () [id number] Date:9433-34-61GE [address] [address]QN: 11/12/2017 Secondary NOT GIVENUNK Yohana Insurance:SELF PAY [facility] Number: Effective Repository Date:2017-11-12 10/18/2017 Laurie [id number] Primary Laurie RuppDOB: Yohana Spruce Insurance:MEDICAL [id number] Health [facility] [id number]: (330) Number: Repository [phone] () [id number] Date:5725-50-21IC [place] [id number]: 10/18/2017 Secondary NOT GIVENUNK [place] Insurance:SELF PAY [facility] Number: Effective Repository Date:2017-10-18 10/16/2017 Laurie [id number] Primary Laurie RuppDOB: Corinne Spruce Insurance:MEDICAL [id number] Health [facility] [id number]: (330) Number: Repository [phone] () [id number] Date:6760-56-20WB [place] [id number]: 10/16/2017 Secondary NOT GIVENUNK Corinne Insurance:SELF PAY [facility] Number: Effective Repository Date:2017-10-16 07/04/2017 LAURIE [id number] Primary LAURIE RUPPDOB: Yohana [place] Insurance:MEDICAL [id number] [address]Aws: (330) Number: Repository [phone] () [id number] Date:6802-55-74PT [address] [address]HI: 06/14/2017 LAURIE [id number] Primary LAURIE RUPPDOB: Corinne SPRUCE Insurance:MEDICAL [id number] [facility] [address]Wpa: (330) Number: Repository [phone] () [id number] Date:4622-09-23OT [address] [place], [place] [address]: 05/24/2017 LAURIE [id number] Primary LAURIE RUPPDOB: Corinne SPRUCE Insurance:MEDICAL [id number] [facility] [address]Hhu: (330) Number: Repository [phone] () [id number] Date:5461-34-11VM [address] [place], [place] [address]: 04/12/2017 LAURIE [id number] Primary LAURIE RUPPDOB: Yohana SPRUCE Insurance:MEDICAL [id number] [facility] [address]Hni: (330) Number: Repository [phone] () [id number] Date:7191-51-59YS [place] [id number]: 03/30/2017 LAURIE [id number] Primary LAURIE RUPPDOB: Yohana [place]UCE Insurance:MEDICAL [id number] [facility] [address]Slo: (330) Number: Repository [phone] () [id number] Date:6806-81-99BE [address] [place], [place] [address]WP:
[2018-03-29 13:50] LABS: Mean Corp Hgb Conc 32.4 g/gl (32-36); Mean Corpuscular Volume 92.5 fL (81-99); Mean Platelet Vol. 10.8 fl (6.2-12.0); Platelet Count 247 K/mm3 (150-450); RBC Distribution Width CV 12.6 % (11.6-14.6); RBC Distribution Width SD 42.8 fl (35.1-43.9); White Blood Count 8.6 K/mm3 (4.4-11.0)
[2018-03-29 13:55] LABS: Scan Indicated on CBC? Y/N NO
[2018-03-29 14:11] LABS: Glucose Challenge Gest 1H 50g 142 mg/dL (70-140)
== END ==
PROVIDERS: Visit Provider Obstetrics & Gynecology
DX: Z34.82 Encounter for supervision of other normal pregnancy, second trimester (principal); Z67.91 Unspecified blood type, Rh negative
CPT/HCPCS: 36415; 82950; 85027; 86850

== ENCOUNTER → 2018-04-09 07:57 | Outpatient (CLI) | payer OTHER, SELFPAY ==
--- OUTSIDE RECORDS SUMMARY | 2018-04-09 08:21 | XMS RPT_ITS ---
:1980 Author Organization OHIP Support Name Relationship Address Phone NORSCH Unavailable [address] + [address] [place] [address] MIREILLE, GUILLERMO Unavailable [address] + [place] [address] N[facility]CH Unavailable [address] + [address] [place] [address] MIREILLE, GUILLERMO Unavailable [address] + [place] [address] NORSCH Unavailable [address] + [address] [place] [address] MIREILLE, GUILLERMO Unavailable [address] + [place] [address] NORSCH Unavailable [address] + [address] [place] [address] MIREILLE, GUILLERMO Unavailable [address] + [place] [address] NORSCH Unavailable [address] + [address] [place] [address] MIREILLE, GUILLERMO Unavailable [address] + [place] [address] NORSCH Unavailable [address] + [place] [address] MIREILLE, GUILLERMO Unavailable [address] + [place] [address] NORSCH Unavailable [address] + [place] [address] MIREILLE, GUILLERMO Unavailable [address] + [place] [address] NORSCH Unavailable [address] + [place] [address] MIREILLE, GUILLERMO Unavailable [address] + [place] [address] NORSCH Unavailable [address] + [place] [address] MIREILLEGUILLERMO FUNG Unavailable [address] + [place] [address] Care Team Providers Name Role Phone Martha Geronimo Attending Unavailable [place], Jose Primary Care Unavailable Martha Geronimo Attending Unavailable [place], Jose Primary Care Unavailable Juanpablo, Martha Attending Unavailable [place], Jose Primary Care Unavailable Isckarus, Pepe Attending Unavailable [place], Jose Primary Care Unavailable Juanpablo, Martha Attending Unavailable [place], Jose Primary Care Unavailable Shrluis e, Martha Attending Unavailable [place], Jose Primary Care Unavailable Shrluis e, Martha Attending Unavailable Benekos, Francine Attending Unavailable Benekos, Francine Attending Unavailable Benerosies, Francine Referring Unavailable Primay Care Physicia, No Primary Care Unavailable PROBLEMS PROBLEMS DATE TYPE CONDITION / CODE ATTENDING STATUS SOURCE 03/29/2018 Unknown Z34.82 - Encounter Francine Dior Active [place] for supervision of Community other normal Hospital , second Repository trimester / Z34.82(ICD-10) 11/14/2017 Unknown Z34.81 - Encounter Martha Geronimo Active [place] for supervision of [facility] other normal Hospital , first Repository trimester / Z34.81(ICD-10) 10/18/2017 Unknown Z32.01 - Encounter Martha Geronimo Active [place] for test, [facility] result positive / Hospital Z32.01(ICD-10) Repository 07/31/2017 Unknown OTHER PRIMARY IsckarSunitha hitchcock [place] [facility] D68.59(ICD-10) Hospital Repository 07/31/2017 Unknown PREG CARE FOR Martha Geronimo [place] PATIENT W RECURRENT Community PREG LOSS, [facility] Hospital TRIMESTER / Repository O26.20(ICD-10) 07/31/2017 Unknown FEMALE INFERTILITY, Martha Geronimo Active [place] UNSPECIFIED / Community N97.9(ICD-10) Hospital Repository 07/31/2017 Unknown WEEKS OF GESTATION Martha Geronimo Active [place] OF NOT Community SPECIFIED / Hospital Z3A.00(ICD-10) Repository 07/31/2017 Unknown SECONDARY Martha Geronimo Active [place] AMENORRHEA / Community N91.1(ICD-10) Hospital Repository 07/31/2017 Unknown MISSED / Martha Geronimo Active [place] O02.1(ICD-10) Community Hospital Repository PROCEDURES PROCEDURES No Procedure Records FoundRESULTS RESULTS CBC-COMPLETE BLOOD CNT Collected: 03/29/2018 Status: F Source: [place] NO DIFF 9:20 AM [facility] REPOSITORY TYPE CODE TESTS RESULT OUT OF RANGE REFERENCE UNITS LAB L100.1000 Normal 4.4-11.0 K/mm3 WBC 8.6 LAB L100.1200 Low 4.2-5.4 M/mm3 RBC 4.00 LAB L100.1300 Normal 12.0-15.0 g/dl HGB 12.0 LAB L100.1400 Normal 37-47 % HCT 37.0 LAB L100.1500 Normal 81-99 fL MCV 92.5 LAB L100.1600 Normal 27.0-32.0 pg MCH 30.0 LAB L100.1700 Normal 32-36 g/gl MCHC 32.4 LAB L100.1810 Normal 11.6-14.6 % RDW 12.6 CV LAB L100.1820 Normal 35.1-43.9 fl RDW 42.8 SD LAB L100.1900 Normal 150-450 K/mm3 PLT 247 LAB L100.2000 Normal 6.2-12.0 fl MPV 10.8 Performed By: #### L100.0500 ####[facility] [address] [place], [address] GLUCOSE CHALLENGE GEST Collected: 03/29/2018 Status: F Source: [place] 1H 50G 9:20 AM [facility] REPOSITORY TYPE CODE TESTS RESULT OUT OF RANGE REFERENCE UNITS LAB L501.0250 High 70-140 mg/dL GLU 142 GEST 50g 1H Performed By: #### L501.0250 ####[facility] [address] [place], [address] ANTIBODY SCREEN Collected: 03/29/2018 Status: F Source: [place] 9:20 AM [facility] REPOSITORY TYPE CODE TESTS RESULT OUT OF RANGE REFERENCE UNITS LAB B100.4000 Normal Antibody NEGATIVE Screen Performed By: #### B100.4000 ####[facility] [address] [place], [address] URINE DRUG SCREEN Collected: 11/12/2017 Status: P Source: [place] (VISTA) 10:23 AM [facility] REPOSITORY Order Comment: List of Drugs Taken [...] SEPARATELY. USE TESTMNEMONIC: UTCA Performed By: #### L505.5000 ####[facility] [address] [facility] AlexeiJessica [place], [place], [address] URINALYSIS, ROUTINE Collected: 11/12/2017 Status: F Source: [place] (DIPSTICK) 10:23 AM [facility] REPOSITORY Order Comment: How was Urine Obtained? [...] LEUK 25 ESTERASE Performed By: #### L400.2010 ####[facility] [address] [place], [address] CBC W/DIFF, AUTOMATED Collected: 11/12/2017 Status: F Source: DE WITT 10:23 AM [facility] REPOSITORY TYPE CODE TESTS RESULT OUT OF [...] Absolute Lymph 2.08 Performed By: #### L100.0100 ####[facility] [address] [facility] [place], [address] THYROID STIM HORMONE Collected: 11/12/2017 Status: F Source: [place] (TSH) 10:23 AM [facility] REPOSITORY TYPE CODE TESTS RESULT OUT OF RANGE REFERENCE UNITS LAB L501.9520 Normal 0.358-3.74 uIU/mL TSH 2.49 Performed By: #### L501.9520 ####[facility] [address] [place], [place], [address] T AND S-NO Collected: 11/12/2017 Status: F Source: [place] CHARGE W/PNP 10:23 AM [facility] REPOSITORY Order Comment: Reason for Type AND Screen/Red Cells: PRENATALSurgery? N TYPE CODE TESTS RESULT OUT OF RANGE REFERENCE UNITS LAB B10.0800 Normal BLOOD O TYPE GEL NEGATIVE LAB B100.4050 Normal Ab NEGATIVE SCREEN GEL Performed By: #### B100.7550 ####[facility] [address] [place], [place], [address] RUBELLA IGG Collected: 11/12/2017 Status: F Source: [place] W[place] 10:23 AM [facility] REPOSITORY TYPE CODE TESTS RESULT OUT OF RANGE REFERENCE UNITS LAB L509.4000 Normal IU/mL Rubella 47.6 IgG Result Comment: Antibody results Interpretation of Immune Status < 5 IU/ml Presumed Non-immune 5 - < 10 IU/ml Equivocal > or = 10 IU/ml Presumed Immune Performed By: #### L509.4000, L3890.6005 ####[facility] [address] [place], [place], [address] HIV - WCH Collected: 11/12/2017 Status: F Source: [place] 10:23 AM [facility] REPOSITORY TYPE CODE TESTS RESULT OUT OF RANGE REFERENCE UNITS LAB L3890.6005 Normal Nonreactive HIV - [facility] Non-Reactive Performed By: #### L509.4000, L3890.6005 ####[facility] [address] [place], [address] HEPATITIS B SURFACE Collected: 11/12/2017 Status: F Source: [place] AG 10:23 AM [facility] REPOSITORY Order Comment: PARVO IGG AND IGM ADDED TO BLOOD AT [facility]. AYAN WILL FILLOUT ADD ON REQUEST AND FAX BACK TO [facility]. THANK YOU. TYPE CODE TESTS RESULT OUT OF RANGE REFERENCE UNITS LAB L3100.0400 Normal Negative HB Negative SURF AG Result Comment: Performed at: [address] [id number] Director: Jonathan Doss PhD, Phone: [phone] Performed By: #### L3100.0390, L3100.0625, L7000.2100 #### [facility] (refer to report for specific site)refer to report for address and phone number HEPATITIS C ANTIBODIES Collected: 11/12/2017 Status: F Source: [place] 10:23 AM [facility] REPOSIT[facility] Order Comment: PARVO IGG AND IGM [...] with a HCV Nucleic Acid Amplification test ([id number]). Performed By: #### L3100.0390, L3100.0625, L70.2100 #### [facility] (refer to report for specific site)refer to report for address and phone number PARVOVIRUS B19 IGG Collected: 11/12/2017 Status: F Source: [place] AND IGM 10:23 AM [facility] REPOSITORY Order Comment: PARVO IGG AND IGM [...] number RPR Collected: 11/12/2017 Status: F Source: [place] 10:23 AM [facility] REPOSITORY TYPE CODE TESTS RESULT OUT OF REFERENCE UNITS RANGE LAB L700.5100 Normal NONREACTIVE NONREACTIVE RPR Performed By: #### L700.5100 ####[facility] [address] [place], [address] CT/NG WCH BY PCR Collected: 11/12/2017 Status: F Source: [place] WITT 10:15 AM [facility] REPOSITORY TYPE CODE TESTS RESULT OUT OF RANGE REFERENCE UNITS LAB L8200.2100 Normal Negative Negative Chlam Trac PCR LAB L8200.2200 Normal Negative NG Negative by PCR Performed By: #### L8200.2000 ####[facility] [address] [place], [address] PAP I-G W/RFX HRHPV Collected: 11/12/2017 Status: F Source: [place] W[place] 10:15 AM [facility] REPOSITORY Order Comment: CYTOLOGY INFORMATION:- CLINICAL INFORMATION: - DATE LMP/MENOPAUSE: 09/18/17 LMP- COLLECTION VIAL: Thin Prep Vial- LICENSED PROSTHETIST SOURCE: CERVICAL/ENDOCERVICAL- COLLECTION TECHNIQUE: BRUSH/SPATULASpecimen Comment: [id number] Comment: No. of containers..01 ThinPrep Vial TYPE CODE TESTS RESULT OUT OF RANGE REFERENCE UNITS LAB L7400.0800 Normal . DIAGN Comment Result Comment: NEGATIVE FOR INTRAEPITHELIAL LESION AND MALIGNANCY.THIS SPECIMEN WAS RESCREENED PART OF OUR TENTERING MACHINE FEEDER PROGRAM. LAB L7400.0900 Normal . ADEQ Comment Result Comment: Satisfactory for evaluation. Endocervical and/or squamous metaplasticcells (endocervical component) are present. LAB L7400.1400 Normal . PERFORM Comment Result Comment: Raj Junior, Assembly Supervisor (ASCP) LAB L7400.1500 Normal . QC Comment REV Result Comment: Ailyn Childress, Assembly Supervisor (ASCP) LAB L7400.2575 Normal . TEST Comment [...] therefore, no HPV testing was performed.Performed at: [address] [id number] Director: Lian George MD, Phone: [phone] Performed By: #### L7400.0350 ####[facility] (refer to report for specific site)refer to report for address and phone number HCG TITER QUANT., Collected: 10/18/2017 Status: F Source: [place] SERUM 11:38 AM [facility] REPOSITORY TYPE CODE TESTS RESULT OUT OF RANGE REFERENCE UNITS LAB L700.8000 High <9 non-preg mIU/mL HCG 1867 QUANT. Performed By: #### L700.8000 ####[facility] [address] [place], [address] HCG TITER QUANT., Collected: 10/16/2017 Status: F Source: [place] SERUM 4:44 PM [facility] REPOSITORY TYPE CODE TESTS RESULT OUT OF RANGE REFERENCE UNITS LAB L700.8000 High <9 non-preg mIU/mL HCG 886 QUANT. Performed By: #### L700.8000 ####[facility] [address] [place], [address] PROTEIN S DEFIC. Collected: 07/04/2017 Status: F Source: [place] PROFILE 3:16 PM [facility] REPOSITORY Order Comment: Reason for Laboratory Test OFFICE VISIT - TEST #[id number] TYPE CODE TESTS RESULT OUT OF RANGE REFERENCE UNITS LAB L3100.7100 Normal 60-150 % PROTEIN 80 S,TOTAL Result Comment: This test was developed and its performance characteristicsdetermined by [facility]. It has not been cleared orapproved by the Food and Drug Administration. LAB L3100.7200 Normal 57-157 % PROTEIN S, FREE 70 Result Comment: This test was developed and its performance characteristicsdetermined by [facility]. It has not been cleared orapproved by the Food and Drug Administration. LAB L3100.7260 Normal 63-140 % PROTEIN S, FUNC 92 Result Comment: Protein S activity may be falsely increased (masking anabnormal, low result) in patients receiving direct Xainhibitor (e.g. , rivaroxaban, apixaban, edoxaban) or adirect thrombin inhibitor (e.g., dabigatran) anticoagulanttreatment due to assay interference by these drugs.Performed at: - [facility] [id number] Director: Sagar Irizarry MD, Phone: [phone] Performed By: #### L3100.7075 ####[facility] (refer to report for specific site)refer to report for address and phone number HISTORY AND PHYSICAL Observed: 07/04/2017 Status: F Source: [place] EXAM 2:47 PM [facility] [address] [place], [place] [address]Ocmeijs and Lbeuufif29/01/17 1420MR#: [id number] Acct: [id number]: LAURIE KENDRICK Rep #: [id number]: 1980 36 [...] on May 24, 2017 following her miscarriage andrevealed a mildly low free protein S at 56% (normal 57-157%) repeat test on June 14, 2017showed a normal level protein S free antigen of 69%and protein S total antigen normal at 65% (normal 60-150%)The rest of her hypercoagulability testing was essentially negativePower of Gold Blower: NoLiving Will: NoHealth History:Cancer HistoryOther Cancer History: [...] studies reviewed and summarized under HPIAssessment and Qunx48-npkk-zzu with 2 unexplained early losses (prior to [...] signed by Pepe Robledo MD>Date Pepe Robledo MDCosign Signature (if applicable): Date CC: Martha Geronimo MD; Jose Toribio MD; Pepe Robledo MD Signed PROTEIN S ANTIGEN Collected: 06/14/2017 Status: F Source: [place] 5:03 PM [facility] REPOSITORY TYPE CODE TESTS RESULT OUT OF RANGE REFERENCE UNITS LAB L3100.7100 Normal 60-150 % PROTEIN 65 S,TOTAL Result Comment: This test was developed and its performance characteristicsdetermined by [facility]. It has not been cleared orapproved by the Food and Drug Administration. LAB L3100.7200 Normal 57-157 % PROTEIN S, FREE 69 Result Comment: This test was developed and its performance characteristicsdetermined by [facility]. It has not been cleared orapproved by the Food and Drug Administration.Performed at: [facility] [address]CoAsh[id number] [place], [place] [id number] Director: Sagar Irizarry MD, Phone: [phone] Performed By: #### L3100.7050 ####[facility] (refer to report for specific site)refer to report for address and phone number HEMOGLOBIN A1C Collected: 05/24/2017 Status: F Source: [place] 4:43 PM [facility] REPOSITORY TYPE CODE TESTS RESULT OUT OF RANGE REFERENCE UNITS LAB L501.9985 Normal 4.2-6.3 % HGB 5.4 A1C Performed By: #### L501.9985 ####[facility] [address] [facility] [address] [place], [place], [address] FREE T3 Collected: 05/24/2017 Status: F Source: [place] W[place] 4:43 PM [facility] REPOSITORY Order Comment: CYCLE DAY 19Has Patient had X-rays with Contrast this admission? NIs Patient on Heparin? N TYPE CODE TESTS RESULT OUT OF RANGE REFERENCE UNITS LAB L501.37502 Normal 2.18-3.98 pg/mL FREE 2.5 T3 Performed By: #### L501.07767, L501.9520, L506.0400, L3300.1750 ####[facility] [address] [place], [place], [address] THYROID STIM HORMONE Collected: 05/24/2017 Status: F Source: [place] (TSH) 4:43 PM [facility] REPOSITORY Order Comment: CYCLE DAY 19Has Patient had X-rays with Contrast this admission? NIs Patient on Heparin? N TYPE CODE TESTS RESULT OUT OF RANGE REFERENCE UNITS LAB L501.9520 Normal 0.358-3.74 uIU/mL TSH 2.17 Performed By: #### L501.47697, L501.9520, L506.0400, L3300.1750 ####[facility] [address] [place], [address] T4 FREE DIRECT Collected: 05/24/2017 Status: F Source: [place] 4:43 PM [facility] REPOSIT[facility] Order Comment: CYCLE DAY 19Has Patient had X-rays with Contrast this admission? NIs Patient on Heparin? N TYPE CODE TESTS RESULT OUT OF RANGE REFERENCE UNITS LAB L506.0400 Normal 0.76-1.46 ng/dL T4 FREE 1.04 DIRECT Performed By: #### L501.26718, L501.9520, L506.0400, L3300.1750 ####[facility] [address] [place], [address] ESTRADIOL Collected: 05/24/2017 Status: F Source: [place] 4:43 PM [facility] REPOSIT[facility] Order Comment: CYCLE DAY 19Has Patient [...] TO DETERMINE ESTRADIOL CONCENTRATION. Performed By: #### L501.86324, L501.9520, L506.0400, L3300.1750 ####[facility] [address] [place], [address] PROGESTERONE LEVEL Collected: 05/24/2017 Status: F Source: [place] 4:43 PM [facility] REPOSITORY TYPE CODE TESTS RESULT OUT OF [...] -422.50 ng/mL Performed By: #### L509.4001, L509.3000 ####[facility] [address] [place], [address] TESTOSTERONE, SERUM TOTAL Collected: 05/24/2017 Status: F Source: [place] 4:43 PM [facility] REPOSITORY TYPE CODE TESTS RESULT OUT OF REFERENCE UNITS RANGE LAB L509.3000 Normal 14-76 ng/dL Testosterone 53 Performed By: #### L509.4001, L509.3000 ####[facility] [address] [place], [address] FACT V LEIDEN Collected: 05/24/2017 Status: F Source: [place] MUTATION 4:43 PM [facility] REPOSITORY TYPE CODE TESTS RESULT OUT OF [...] in the workup for venous thrombosis include [id number] mutation in the factor II (prothrombin) gene, protein S and C deficiency, and antithrombin deficiencies.Anticardiolipin antibody and lupus anticoagulant analysismay be appropriate for certain patients, as well ashomocysteine levels.Contact your local [facility] for information on how to orderadditional testing if desired. LAB L4500.5200 Normal . COMMENT Comment Result Comment: Genetic counselors are available for health careproviders to discuss results at [phone] ([phone]).Methodology:DNA analysis of the Factor V gene was performed by allele-specific PCR. The diagnostic sensitivity and specificity is>99% for both. Molecular-based testing is highly accurate,but as in any laboratory test, diagnostic errors may occur.All test results must be combined with clinical informationfor the most accurate interpretation.This test was developed and its performance characteristicsdetermined by [facility]. It has not been cleared or approvedby the Food and Drug Administration.References:Robert Lara (1995). Clin Lab Med 16:169- 186.Katty Wong, PhD, Dimple Bernardo, PhD, Jimmy Hodges, PhD, Alis ChaSJessica, PhD, Cathie Castro, PhD, Luis Song, PhD, Noreen Rhodes PhD, FACMGPerformed at: [facility] [id number] [place], [place] [id number] Director: Juni Lugo MD, Phone: [phone] Performed By: #### L4500.5000 ####[facility] (refer to report for specific site)refer to report for address and phone number THROMBOTIC RISK Collected: 05/24/2017 Status: F Source: [place] PROFILE 4:43 PM [facility] REPOSITORY TYPE CODE TESTS RESULT OUT OF [...] was developed and its performance characteristicsdetermined by [facility]. It has not been cleared orapproved by [...] Result Comment: NEGATIVENo mutation identified.Comment:A point mutation ([id number]) in the factor II (prothrombin)gene is the [...] individual mutations. This assaydetects only the prothrombin T00995G mutation and doesnot measure genetic abnormalities elsewhere in thegenome. Other thrombotic risk factors may be pursuedthrough systematic clinical laboratory analysis. Thesefactors include the R506Q ([place]) mutation in the Factor Vgene, plasma homocysteine levels, as well as testing fordeficiencies of antithrombin III, protein C and protein S.Genetic Counselors are available for health care providersto discuss results at [phone] ([phone]).Methodology:DNA analysis of the Factor II gene was performed by PCRamplification followed by restriction analysis. Thediagnostic sensitivity is >99% for both. All the tests mustbe combined with clinical information for the most accurateinterpretation. Molecular-based testing is highly accurate,but as in any laboratory test, diagnostic errors may occur.This test was developed and its performance characteristicsdetermined by [facility]. It has not been cleared or approvedby the Food and Drug Administration.Poort SR, et al. Blood. 1996; 88:2144-0715.Blanka BAUTISTA. Circulation. 2004; 110:e15-e18.Asmita I, et al. Arterioscler Thromb Vasc Biol. 1999;19:700-703.Katty Wong, PhD, Dimple Bernardo, PhD, Jimmy Hodges, PhD, Jose Blanchard MJessicaSJessica, PhD, Cathie Castro, PhD, Luis Song, PhD, Noreen Rhodes, PhD, FACMGPerformed at: [address] [id number] Director: Jonathan Doss PhD, Phone: [phone] at: [facility] [id number] Director: Sagar Irizarry MD, Phone: [phone] at: [facility] [place], [place] [id number] Director: Juni Lugo MD, Phone: [phone] Performed By: #### L803.4000 ####[facility] (refer to report for specific site)refer to report for address and phone number OPERATIVE REPORT Observed: 04/12/2017 Status: F Source: DE WITT 3:58 PM [facility] [address] [place] [address]Sytnagumo Dfnply58/10/17 1551MR#: [id number] Acct: [id number]: LAURIE KENDRICK Rep #: [id number]: 1980 36 From: Martha Geronimo MDPCP: Jose Toribio MD Status: REG [facility] YLocation: [id number] List(1) Missed abortionStatus: AcuteReport of OperationDate of [...] ordered?: NoReason prophylaxis not ordered:: Treatment Not Xtrqkpged80/10/17 1558 <Electronically signed by Martha Geronimo MD>Date Martha Geronimo MDCC: Martha Geronimo MD; Jose Toribio MD Signed DISCHARGE INSTRUCTION Observed: 04/12/2017 Status: F Source: DE WITT 3:43 PM [facility] [address] [place], [place] [address]Fmtnnlukgoec for Home/Discharge Vvegdqhauvlb51/10/17 1542MR #: [id number] Acct: [id number]: LAURIE KENDRICK Rep #: [id number]: 1980 36 [...] at DischargeNo Known/Unobtainable [No Known Home Medications] 04/[facility]/17[facility]:Jose Toribio MD [Primary Care Provider] -Please Follow Up With: Jay Geronimo: next week - please call for djsitlmyqwt22/10/17 1543 <Electronically signed by Martha Geronimo MD> Date Martha Geronimo MDCC: Jose Toribio MD OPERATIVE REPORT Observed: 04/12/2017 Status: F Source: YOHANA 3:42 PM [facility] [address] [place] [place], [place] [address]Wvubkemwf Vycbga84/10/17 1540MR#: [id number] Acct: [id number]: LAURIE KENDRICK Rep #: [id number]: 1980 36 From: Martha Geronimo MDPCP: Jose Toribio MD Status: [facility] YLocation: [id number] List(1) Missed abortionStatus: AcuteOperative ReportDate of Procedure: 04/12/17Preop: Missed abPostop: SameProcedure: Suction D and CSurgeon: ShrinerEBL: minimalFluids: Lactated ringersMeds: Cefotetan 2 grams Iv preop and 1% Lidocaine 10cc local to cervixAnesthesia: MACUrine: straight cath04/12/17 1542 <Electronically signed by Martha Geronimo MD>Date Martha Geronimo MDCC: Martha Geronimo MD; Jose Toribio MD Signed PRODUCTS OF CONCEPTION Observed: 04/12/2017 Status: F Source: YOHANA 3:27 PM [facility] REPOSITORY Patient: LAURIE KENDRICK : 1980 (36/F) Acct Num: [id number] Phys: Juanpablo NUNEZ,Martha Unit Num: [id number] Loc: [facility] Specimen: [id number] Received: 04/13/17 - 1420 Spec Type: PROD CONC TISSUES TISSUES: GROSS DESCRIPTION Received in fixative is one container labeled with the patient's name and designated products of conception. The specimen consists of multiple pieces of calvin-pink soft tissue that in aggregate measure 5 x 5 x 2 cm. No tissueis identified. Waiter/Waitress Cabin Class tissue is submitted in two cassettes. / SJ:sylwia 04/13/17 TC:5 CPT: 75838 HEADER OPERATION: D AND C suction PRE-OP DIAGNOSIS: Missed AB TISSUE SUBMITTED: Products of conception MICROSCOPIC DESCRIPTION Slides are reviewed. MICROSCOPIC DIAGNOSIS Endometrium, curettage: Chorionic villi, decidualized stroma and trophoblastic cells consistent with products of conception. AM: sylwia 04/16/17 Signed Crist[facility]bal [facility] 04/16/17 <signature on file> Performed By: #### PPOC ####[facility] [address] [place], [place], [address] CBC-COMPLETE BLOOD CNT Collected: 04/12/2017 Status: F Source: [place] WITT NO DIFF 1:50 PM [facility] REPOSITORY TYPE CODE TESTS RESULT OUT OF [...] fl MPV 9.8 Performed By: #### L100.0500 ####[facility] [id number] [place], [address] TYPE AND SCREEN Collected: 04/12/2017 Status: F Source: [place] WITT 1:50 PM [facility] REPOSITORY Order Comment: Has pt arrived? YReason for Type AND Screen/Red Cells: SURGERY TYPE CODE TESTS RESULT OUT OF RANGE REFERENCE UNITS LAB B10.0800 Normal BLOOD O TYPE GEL NEGATIVE LAB B100.4000 Normal Antibody NEGATIVE Screen Performed By: #### B101.7450 ####[facility] [id number] [place], [address] RHOGAM Collected: 04/12/2017 Status: F Source: [place] WITT 1:50 PM [facility] REPOSITORY TYPE CODE TESTS RESULT OUT OF REFERENCE UNITS RANGE LAB U100.2500 [id number] TRANSFUSED PRODUCT: Rho(D) Immune Globulin RhoGam COUNT: 1 Performed By: #### U100.2500 ####[facility] - refer to report for specific site ALLERGIES ALLERGIES DATE TYPE / CODE NAME / CODE REACTION SEVERITY SOURCE 07/04/2017 Drug No Known Unknown [facility] Allergy/4160 Allergies/F00 Hospital [facility](SNOMED 1414966(RXNOR Repository CT) M) 07/04/2017 Drug No Known [facility] Allergy/4160 Allergies/F00 Hospital [facility](SNOMED 5544509(RXNOR Repository CT) M) ENCOUNTERS ENCOUNTERS ADMIT/DISCHARGE ACCOUNT ADMITTING ENCOUNTER LOCATION SOURCE NUMBER CLASS 04/09/2018 [id number] Ambulatory [place] 1 [facility] ing:LAB Repository 03/29/2018 [id number] Ambulatory [place] 4 [facility] ing:WOBLAB Repository 11/12/2017 [id number] [place] 4 [facility] ing:WOBLAB Repository 10/18/2017 [id number] Ambulatory [place] 3 [facility] ing:WOBLAB Repository 10/16/2017 [id number] Ambulatory [place] 1 [facility] ing:LAB.FUTUR Repository E 07/04/2017 [id number] [place] 6 [facility] ing:OMD Repository 06/14/2017 [id number] Ambulatory [place] 2 [facility] ing:LAB Repository 05/24/2017 [id number] Ambulatory [place] 6 [facility] ing:LAB Repository 04/12/2017/ [id number] [place] 7 5 [facility] ing:SDCRoom: Repository AC17 PAYERS PAYERS ENCOUNTER GUARANTOR PAYER SUBSCRIBER SOURCE 04/09/2018 LAURIE N [id number] Primary LAURIE N RUPPDOB: [place] Insurance:MEDICAL [id number] [id number]: (330) Number: Repository [phone] () [id number] Date:3157-78-94TS [place] [address]WP: 04/09/2018 Secondary NOT GIVENUNK [place] Insurance:SELF PAY [facility] Number: Effective Repository Date:2018-04-08 03/29/2018 Laurie [id number] Primary Laurie RuppDOB: [place] Insurance:MEDICAL [id number] [id number]: (330) Number: Repository [phone] () [id number] Date:1130-38-35[place] [phone]: 03/29/2018 Secondary NOT GIVENUNK [place] Insurance:SELF PAY [facility] Number: Effective Repository Date:2018-03-29 11/12/2017 Laurie [id number] Primary Laurie RuppDOB: [place] Insurance:MEDICAL [id number] [id number]: (330) Number: Repository [phone] () [id number] Date:2374-86-75RH [address] [place] [address]IV: 11/12/2017 Secondary NOT GIVENUNK [place] Insurance:SELF PAY [facility] Number: Effective Repository Date:2017-11-12 10/18/2017 Laurie [id number] Primary Laurie RuppDOB: [place] Insurance:MEDICAL [id number] [id number]: (330) Number: Repository [phone] () [id number] Date:3318-28-13QB [address] [place], [place] [address]WP: 10/18/2017 Secondary NOT GIVENUNK [place] Insurance:SELF PAY [facility] Number: Effective Repository Date:2017-10-18 10/16/2017 Laurie [id number] Primary Laurie RuppDOB: [place] Insurance:MEDICAL [id number] [id number]: (330) Number: Repository [phone] () [id number] Date:9403-00-27RD [address] [address]QG: 10/16/2017 Secondary NOT GIVENUNK [place] Insurance:SELF PAY [facility] Number: Effective Repository Date:2017-10-16 07/04/2017 LAURIE [id number] Primary LAURIE RUPPDOB: [place] Insurance:MEDICAL [id number] [id number]: (330) Number: Repository [phone] () [id number] Date:3680-71-03QI [address] [address]MZ: 06/14/2017 LAURIE [id number] Primary LAURIE RUPPDOB: [place] Insurance:MEDICAL [id number] Health Institute [id number]: (330) Number: Repository [phone] () [id number] Date:9942-80-74UC[address] [address]SI: 05/24/2017 LAURIE [id number] Primary LAURIE RUPPDOB: [place] Insurance:MEDICAL [id number] Health Institute [id number]: (330) Number: Repository [phone] () [id number] Date:5716-44-46[place]SC[place] [phone]: 04/12/2017 LAURIE [id number] Primary LAURIE RUPPDOB: [place] Insurance:MEDICAL [id number] Health Institute [id number]: (330) Number: Repository [phone] () [id number] Date:5254-43-41OF[address] [address]KS:
[2018-04-09 09:59] LABS: Glucose GTT-Gestation. Fasting 89 mg/dL (<105)
[2018-04-09 10:38] LABS: Glucose GTT-Gestational 2 Hr 125 mg/dL (<165)
[2018-04-09 10:41] LABS: Glucose GTT-Gestational 1 Hr 164 mg/dL (<190)
[2018-04-09 11:56] LABS: Glucose GTT-Gestational 3 Hr 111 L (<145)
== END ==
PROVIDERS: Visit Provider Obstetrics & Gynecology
DX: O24.912 Unspecified diabetes mellitus in pregnancy, second trimester (principal); Z3A.00 Weeks of gestation of pregnancy not specified
CPT/HCPCS: 36415; 82951; 82952

== ENCOUNTER → 2018-05-27 18:11 | Outpatient (CLI) | payer OTHER, SELFPAY ==
[2018-05-27 21:12] LABS: Group B Strep DNA By PCR POSITIVE (Negative); Probe Check PASS
== END ==
PROVIDERS: Referring Provider Obstetrics & Gynecology; Visit Provider Obstetrics & Gynecology
DX: Z36.85 Encounter for antenatal screening for Streptococcus B (principal)
CPT/HCPCS: 87653

== ENCOUNTER 2018-06-16 06:25 | Inpatient (IN) | payer OTHER, SELFPAY ==
[2018-06-16 06:51] VITALS: BMI 25.8
--- OUTSIDE RECORDS SUMMARY | 2018-06-16 06:51 | XMS RPT_ITS ---
:1980 Author Organization OHIP Support Name Relationship Address Phone NORSCH Unavailable [address] + [address] [place] [address] MIREILLE, GUILLERMO Unavailable [address] + [place] [address] N[facility]CH Unavailable [address] + [address] [place] [address] MIREILLE, GUILLERMO Unavailable [address] + [place] [address] NORSCH Unavailable [address] + [address] [place] [address] MIREILLE, GUILLERMO Unavailable [address] + [place] [address] NORSCH Unavailable [address] + [address] [place] [address] MIREILLE, GUILLERMO Unavailable [address] + [place] [address] NORSCH Unavailable [address] + [address] [place] [address] MIREILLE, GUILLERMO Unavailable [address] + [place] [address] NORSCH Unavailable [address] + [address] [place] [address] MIREILLE, GUILLERMO Unavailable [address] + [place] [address] NORSCH Unavailable [address] + [address] [place] [address] MIREILLE, GUILLERMO Unavailable [address] + [place] [address] NORSCH Unavailable [address] + [place] [address] MIREILLE, GUILLERMO Unavailable [address] + [place] [address] Care Team Providers Name Role Phone Pepe Robledo Attending Unavailable Adrian, Jose Primary Care Unavailable Juanpablo, Martha Attending Unavailable Adrian, Jose Primary Care Unavailable Juanpablo, Martha Attending Unavailable Adrian, Jose Primary Care Unavailable Shriner, Martha Attending Unavailable Benekos, Francine Attending Unavailable Benekos, Francine Attending Unavailable Benekos, Francine Referring Unavailable Primay Care Physicia, No Primary Care Unavailable Benekos, Francine Attending Unavailable Primay Care Physicia, No Primary Care Unavailable Benekos, Francine Referring Unavailable Benekos, Francine Admitting Unavailable Benekos, Francine Attending Unavailable Primay Care Physicia, No Primary Care Unavailable PROBLEMS PROBLEMS DATE TYPE CONDITION / CODE ATTENDING STATUS SOURCE 05/28/2018 Unknown Z36.85 - Encounter Francine Dior Active [facility] for [facility] screening for Hospital Streptococcus B / Repository Z36.85(ICD-10) 03/29/2018 Unknown Z34.82 - Encounter Francine Dior Active [facility] for supervision of Community other normal Hospital , second Repository trimester / Z34.82(ICD-10) 11/14/2017 Unknown Z34.81 - Encounter Martha Geronimo Active [facility] for supervision of [facility] other normal Hospital , first Repository trimester / Z34.81(ICD-10) 10/18/2017 Unknown Z32.01 - Encounter Martha Geronimo Active [facility] for test, Community result positive / Hospital Z32.01(ICD-10) Repository 07/31/2017 Unknown OTHER PRIMARY Meena Active [facility] THROMBOPHILIA / [facility] D68.59(ICD-10) Hospital Repository PROCEDURES PROCEDURES No Procedure Records FoundRESULTS RESULTS GROUP B STREP DNA Collected: 05/27/2018 Status: F Source: [facility] BY PCR 4:45 PM [facility] REPOSITORY Order Comment: Source: Vaginal-Rectal TYPE CODE TESTS RESULT OUT OF REFERENCE UNITS RANGE LAB L8200.0100 High Negative GBS POSITIVE TEST RESULT Result Comment: Penicillin is the recommended antibiotic for the treatment of Group B Streptococcal disease. In case of penicillin allergy, susceptibility testing for Clindamycin and Erythromycin is suggested by request. Performed By: #### L8200.0000 #### [facility] [place], [address] GESTATIONAL GTT 3HR Collected: 04/09/2018 Status: F Source: [facility] 100G 8:01 AM [facility] REPOSITORY Order Comment: Is Patient Fasting? Y TYPE CODE TESTS RESULT OUT OF RANGE REFERENCE UNITS LAB L501.0650 Normal <105 mg/dL GLU 89 GTT-FASTING Result Comment: GLUCOSE TOLERANCE TEST FOR Reference Interval GESTATIONAL DIABETES Fasting <105 mg/dL 1 hour <190 mg/dl 2 hour <165 mg/dl 3 hour <145 mg/dl LAB L501.0670 Normal <165 mg/dL GLU GTT- 2HR 125 LAB L501.0660 Normal <190 mg/dL GLU GTT- 1HR 164 LAB L501.0680 Normal <145 L GLU GTT- 3HR 111 Performed By: #### L500.4710 #### [facility] [address] [facility] [place], [place], [id number] CBC-COMPLETE BLOOD CNT Collected: 03/29/2018 Status: F Source: [facility] NO DIFF 9:20 AM [facility] REPOSITORY TYPE CODE TESTS RESULT OUT OF [...] fl MPV 10.8 Performed By: #### L100.0500 #### [facility] [address] [place], [place], [address] GLUCOSE CHALLENGE GEST Collected: 03/29/2018 Status: F Source: [place] 1H 50G 9:20 AM [facility] REPOSITORY TYPE CODE TESTS RESULT OUT OF RANGE REFERENCE UNITS LAB L501.0250 High 70-140 mg/dL GLU 142 GEST 50g 1H Performed By: #### L501.0250 #### [facility] [address] [place], [address] ANTIBODY SCREEN Collected: 03/29/2018 Status: F Source: [facility] 9:20 AM [facility] REPOSITORY TYPE CODE TESTS RESULT OUT OF RANGE REFERENCE UNITS LAB B100.4000 Normal Antibody NEGATIVE Screen Performed By: #### B100.4000 #### [facility] [address] [place], [address] URINE DRUG SCREEN Collected: 11/12/2017 Status: P Source: [facility] (VISTA) 10:23 AM [facility] REPOSITORY Order Comment: List of Drugs Taken or Suspected? UNK TYPE CODE TESTS RESULT OUT OF RANGE REFERENCE UNITS LAB L505.0075 Normal TO BE CONFIRMED Result Comment: CONFIRMATORY TESTING FOR ALL POSITIVE URINE DRUG SCREEN RESULTS WILL ONLY BE SENT OUT UPON PHYSICIAN ORDER. VISTA Urine Drug Screen methods provide only preliminary analytical test results. A more specific alternate chemical method must be used in order to obtain a confirmed analytical result. Gas chromatography/mass spectrometery (GC/MS) is the preferred confirmatory method. Clinical consideration and professional judgement should be applied to any drug of abuse test result, particularly when preliminary positive results are used. URINE TCA TESTING MUST BE ORDERED SEPARATELY. USE TEST MNEMONIC: UTCA Performed By: #### L505.5000 #### [facility] [address] [place], [address] URINALYSIS, ROUTINE Collected: 11/12/2017 Status: F Source: [facility] (DIPSTICK) 10:23 AM [facility] REPOSITORY Order Comment: How was Urine Obtained? [...] LEUK 25 ESTERASE Performed By: #### L400.2010 #### [facility] [address] [place], [address] CBC W/DIFF, AUTOMATED Collected: 11/12/2017 Status: F Source: [place] 10:23 AM [facility] REPOSITORY TYPE CODE TESTS RESULT OUT OF [...] Comment: IG% - Immature Granulocytes (promyelocytes, myelocytes and metamyelocytes) > 1% indicates that a LEFT SHIFT is Present. LAB L100.2620 Normal 2.0-7.7 X10 3/uL Absolute Neut 7.0 LAB L100.2720 Normal 0.83-4.51 X10 3/ul Absolute Lymph 2.08 Performed By: #### L100.0100 #### [facility] [address] [facility] [place], [place], [id number] THYROID STIM HORMONE Collected: 11/12/2017 Status: F Source: [place] (TSH) 10:23 AM [facility] REPOSITORY TYPE CODE TESTS RESULT OUT OF RANGE REFERENCE UNITS LAB L501.9520 Normal 0.358-3.74 uIU/mL TSH 2.49 Performed By: #### L501.9520 #### [facility] [facility]. [place], [place], [id number] T AND S-NO Collected: 11/12/2017 Status: F Source: [place] CHARGE W/PNP 10:23 AM [facility] REPOSITORY Order Comment: Reason for Type AND Screen/Red Cells: PRENATALSurgery? N TYPE CODE TESTS RESULT OUT OF RANGE REFERENCE UNITS LAB B10.0800 Normal BLOOD O TYPE GEL NEGATIVE LAB B100.4050 Normal Ab NEGATIVE SCREEN GEL Performed By: #### B100.7550 #### [facility] [address] [facility] [place], [place], [id number] RUBELLA IGG Collected: 11/12/2017 Status: F Source: [place] 10:23 AM [facility] REPOSITORY TYPE CODE TESTS RESULT OUT OF RANGE REFERENCE UNITS LAB L509.4000 Normal IU/mL Rubella 47.6 IgG Result Comment: Antibody results Interpretation of Immune Status < 5 IU/ml Presumed Non-immune 5 - < 10 IU/ml Equivocal > or = 10 IU/ml Presumed Immune Performed By: #### L509.4000, L3890.6005 #### [facility] [address] [facility] [place], [place], [id number] HIV - [facility] Collected: 11/12/2017 Status: F Source: [place] 10:23 AM [facility] REPOSITORY TYPE CODE TESTS RESULT OUT OF RANGE REFERENCE UNITS LAB L3890.6005 Normal Nonreactive HIV - [facility] Non-Reactive Performed By: #### L509.4000, L3890.6005 #### [facility] [place], [address] HEPATITIS B SURFACE Collected: 11/12/2017 Status: F Source: [place] AG 10:23 AM [facility] REPOSITORY Order Comment: PARVO IGG AND IGM ADDED TO BLOOD AT [facility]. AYAN WILL FILLOUT ADD ON REQUEST AND FAX BACK TO [facility]. THANK YOU. TYPE CODE TESTS RESULT OUT OF RANGE REFERENCE UNITS LAB L3100.0400 Normal Negative HB Negative SURF AG Result Comment: Performed at: [address] [id number] Science Interpreter: Jonathan Doss PhD, Phone: [phone] Performed By: #### L3100.0390, L3100.0625, L70.2100 #### [facility] (refer to report for specific site) refer to report for address and phone number HEPATITIS C ANTIBODIES Collected: 11/12/2017 Status: F Source: [place] 10:23 AM [facility] REPOSITORY Order Comment: PARVO IGG AND IGM [...] with a HCV Nucleic Acid Amplification test (588006). Performed By: #### L3100.0390, L3100.0625, L7000.2100 #### [facility] (refer to report for specific site) refer to report for address and phone number PARVOVIRUS B19 IGG Collected: 11/12/2017 Status: F Source: [place] AND IGM 10:23 AM [facility] REPOSITORY Order Comment: PARVO IGG AND IGM [...] #### [facility] (refer to report for specific site) refer to report for address and phone number RPR Collected: 11/12/2017 Status: F Source: [place] 10:23 AM [facility] REPOS[facility]ORY TYPE CODE TESTS RESULT OUT OF REFERENCE UNITS RANGE LAB L700.5100 Normal NONREACTIVE NONREACTIVE RPR Performed By: #### L700.5100 #### [facility] [address] [facility] [place], [address] CT/NG [facility] BY PCR Collected: 11/12/2017 Status: F Source: [place] 10:15 AM [facility] REPOS[facility]ORY TYPE CODE TESTS RESULT OUT OF RANGE REFERENCE UNITS LAB L8200.2100 Normal Negative Negative Chlam Trac PCR LAB L8200.2200 Normal Negative NG Negative by PCR Performed By: #### L8200.2000 #### [facility] [address] [facility] [place], [address] PAP I-G W/RFX HRHPV Collected: 11/12/2017 Status: F Source: [place] 10:15 AM [facility] REPOS[facility]ORY Order Comment: CYTOLOGY INFORMATION:- CLINICAL INFORMATION: - DATE LMP/MENOPAUSE: 09/18/17 LMP- COLLECTION VIAL: Thin Prep Vial- ROOM SERVICE SUPERVISOR SOURCE: CERVICAL/ENDOCERVICAL- COLLECTION TECHNIQUE: BRUSH/SPATULASpecimen Comment: [id number] Comment: No. of containers..01 ThinPrep Vial TYPE CODE TESTS RESULT OUT OF RANGE REFERENCE UNITS LAB L7400.0800 Normal . DIAGN Comment Result Comment: NEGATIVE FOR INTRAEPITHELIAL LESION AND MALIGNANCY. THIS SPECIMEN WAS RESCREENED PART OF OUR HYDRO STATION SUPERVISOR PROGRAM. LAB L7400.0900 Normal . ADEQ Comment Result Comment: Satisfactory for evaluation. Endocervical and/or squamous metaplastic cells (endocervical component) are present. LAB L7400.1400 Normal . PERFORM Comment Result Comment: Raj Junior, Trouble Lineman (ASC) LAB L7400.1500 Normal . QC Comment REV Result Comment: Ailyn Childress, Trouble Lineman (ASC) LAB L7400.2575 Normal . TEST Comment METHOD Result Comment: This liquid based ThinPrep(R) pap test was screened with the use of an image guided system. LAB L7400.2600 Normal . COMM . LAB L7400.2700 Normal . PAPSMR Comment Result Comment: The Pap smear is a screening test designed to aid in the detection of premalignant and malignant conditions of the uterine cervix. It is not a diagnostic procedure and should not be used as the sole means of detecting cervical cancer. Both false-positive and false-negative reports do occur. LAB L7400.2800 Normal . HPV Comment RFLX Result Comment: The HPV DNA reflex criteria were not met with this specimen result therefore, no HPV testing was performed. Performed at: - [facility] [id number] Science Interpreter: Lian George MD, Phone: [phone] Performed By: #### L7400.0350 #### [facility]er [facility] for specific [facility] refer to report for address and phone number HCG TITER QUANT., Collected: 10/18/2017 Status: F Source: [place] SERUM 11:38 AM [facility] REPOSITORY TYPE CODE TESTS RESULT OUT OF RANGE REFERENCE UNITS LAB L700.8000 High <9 non-preg mIU/mL HCG 1867 QUANT. Performed By: #### L700.8000 #### [facility] [address] [place], [place], [address] HCG TITER QUANT., Collected: 10/16/2017 Status: F Source: [place] SERUM 4:44 PM [facility] REPOSITORY TYPE CODE TESTS RESULT OUT OF RANGE REFERENCE UNITS LAB L700.8000 High <9 non-preg mIU/mL HCG 886 QUANT. Performed By: #### L700.8000 #### [facility] [address] [place], [address] PROTEIN S DEFIC. Collected: 07/04/2017 Status: F Source: [place] PROFILE 3:16 PM [facility] REPOSITORY Order Comment: Reason for Laboratory Test OFFICE VISIT - TEST #[id number] TYPE CODE TESTS RESULT OUT OF RANGE REFERENCE UNITS LAB L3100.7100 Normal 60-150 % PROTEIN 80 S,TOTAL Result Comment: This test was developed and its performance characteristics determined by [facility]. It has not been cleared or approved by the Food and Drug Administration. LAB L3100.7200 Normal 57-157 % PROTEIN S, FREE 70 Result Comment: This test was developed and its performance characteristics determined by [facility]. It has not been cleared or approved by the Food and Drug Administration. LAB L3100.7260 Normal 63-140 % PROTEIN S, FUNC 92 Result Comment: Protein S activity may be falsely increased (masking an abnormal, low result) in patients receiving direct Xa inhibitor (e.g., rivaroxaban, apixaban, edoxaban) or a direct thrombin inhibitor (e.g., dabigatran) anticoagulant treatment due to assay interference by these drugs. Performed at: [address] [id number] Science Interpreter: Sagar Irizarry MD, Phone: [phone] Performed By: #### L3100.7075 #### [facility]er [facility] for specific site) refer to report for address and phone number HISTORY AND PHYSICAL Observed: 07/04/2017 Status: F Source: [place] EXAM 2:47 PM [facility] [address] [place], [place] [address]Wrbnhtr and Hxdqbeam47/01/17 1420MR#: [id number] Acct: [id number]: LAURIE KENDRICK Rep #: [id number]: 1980 36 [...] her hypercoagulability testing was essentially negativePower of Artist Mannequin Coloring: NoLiving Will: NoHealth History:Cancer HistoryOther Cancer History: [...] quit/cut down:Reason for no counselingperformed:Reason for no pharmacotherapy:Tobacco use comments:Passive smoke exposure:Substance RiskDrug use: NoCaffeine [...] studies reviewed and summarized under HPIAssessment and [id number]-[id number]-rot with 2 unexplained early losses (prior to [...] follow-up oncethese results are availablePrimary Care Provider: [facility] Provider:07/04/17 4597 <Electronically signed by Pepe Robledo MD>Date Pepe Robledo MDCosigner Signature (if applicable): Date CC: Martha Geronimo MD; Jose Toribio MD; Pepe Robledo MD Signed ALLERGIES ALLERGIES DATE TYPE / CODE NAME / CODE REACTION SEVERITY SOURCE 07/04/2017 Drug No Known Unknown [facility] Allergy/4160 Allergies/F00 Hospital 59354(SNOMED 5229490(RXNOR Repository CT) M) 07/04/2017 Drug No Known [facility] Allergy/4160 Allergies/F00 Hospital 34648(SNOMED 0921357(RXNOR Repository CT) M) ENCOUNTERS ENCOUNTERS ADMIT/DISCHARGE ACCOUNT ADMITTING ENCOUNTER LOCATION SOURCE NUMBER CLASS 06/16/2018 [id number] Deos, Inpatient [facility] 1 Francine Encounter [facility] ing:WPRoom: Repository MN048Jev: 1 05/27/2018 [id number] Ambulatory [address] ing:LABSPEC Repository 04/09/2018 [id number] Ambulatory [facility] 1 [facility] ing:LAB Repository 03/29/2018 [id number] Ambulatory [facility] 4 [facility] ing:WOBLAB Repository 11/12/2017 [id number] Ambulatory [facility] 4 [facility] ing:WOBLAB Repository 10/18/2017 [id number] Ambulatory [facility] 3 [facility] ing:WOBLAB Repository 10/16/2017 [id number] Ambulatory [facility] ing:LAB.FUTUR Repository E 07/04/2017 [id number] Ambulatory [facility] 6 [facility] ing:OMD Repository PAYERS PAYERS ENCOUNTER GUARANTOR PAYER SUBSCRIBER SOURCE 06/16/2018 LAURIE [id number] Primary LAURIE SAMB: [facility] [place] Insurance:MEDICAL [id number] [address]Hom: (989) Number: Repository [phone] HP) [id number] Date:5517-87-99CP [address] [place] [phone]: 06/16/2018 Secondary NOT GIVENUNK [facility] Insurance:SELF PAY [facility] Number: Effective Repository Date:2018-06-16 05/27/2018 LAURIE N [id number] Primary LAURIE N RUPPDOB: [facility] [place] Insurance:MEDICAL [id number] [facility] [address]Vyg: (330) Number: Repository [phone] () [id number] Date:4236-10-91TR [place] [phone]: 05/27/2018 Secondary NOT GIVENUNK [facility] Insurance:SELF PAY [facility] Number: Effective Repository Date:2018-05-27 04/09/2018 LAURIE N [id number] Primary LAURIE N RUPPDOB: [facility] [place] Insurance:MEDICAL [id number] [facility] [address]Rmd: (330) Number: Repository [phone] () [id number] Date:5953-40-84AB [place] [phone]: 04/09/2018 Secondary NOT GIVENUNK [facility] Insurance:SELF PAY [facility] Number: Effective Repository Date:2018-04-08 03/29/2018 Laurie [id number] Primary Laurie RuppDOB: [facility] Spruce Insurance:MEDICAL [id number] [facility]ost[facility] [address]Quj: (330) Number: Repository [phone] () [id number] Date:0490-51-42LQ [place] [phone]: 03/29/2018 Secondary NOT GIVENUNK [facility] Insurance:SELF PAY [facility] Number: Effective Repository Date:2018-03-29 11/12/2017 Laurie [id number] Primary Laurie RuppDOB: [facility] [place] Insurance:MEDICAL [id number] [facility] [address]Xxn: (330) Number: Repository [phone] () [id number] Date:1110-08-47QU [address] [place] [phone]: 11/12/2017 Secondary NOT GIVENUNK [facility] Insurance:SELF PAY [facility] Number: Effective Repository Date:2017-11-12 10/18/2017 Laurei [id number] Primary Laurie RuppDOB: [facility] Sp[place] Insurance:MEDICAL [id number] [facility]ost[facility] [address]Bzb: (330) Number: Repository [phone] () [id number] Date:2112-95-38KT [address] [place] [phone]: 10/18/2017 Secondary NOT GIVENUNK [facility] Insurance:SELF PAY [facility] Number: Effective Repository Date:2017-10-18 10/16/2017 Laurie [id number] Primary Laurie RuppDOB: [facility] [place] Insurance:MEDICAL [id number] [facility] [address]Qro: (330) Number: Repository [phone] () [id number] Date:2727-71-22ZI [address] [phone]: 10/16/2017 Secondary NOT GIVENUNK [facility] Insurance:SELF PAY [facility] Number: Effective Repository Date:2017-10-16 07/04/2017 LAURIE [id number] Primary LAURIE RUPPDOB: [facility] [place] Insurance:MEDICAL [id number] Wert County Hospital [address]Lgy: (330) Number: Repository [phone] () [id number] Date:1643-17-38SC [address] [place] [phone]:
[2018-06-16] MEDS: Lactated Ringers 1,000 ML 50 ML IV (06:55)
[2018-06-16 07:14] LABS: Hematocrit 36.9 % (37-47); Mean Corp Hgb Conc 32.5 g/gl (32-36); Mean Corpuscular Hgb 28.7 pg (27.0-32.0); Mean Corpuscular Volume 88.3 fL (81-99); Mean Platelet Vol. 11.9 fl (6.2-12.0); Platelet Count 205 K/mm3 (150-450); RBC Distribution Width CV 13.3 % (11.6-14.6); RBC Distribution Width SD 41.4 fl (35.1-43.9); Red Blood Count 4.18 M/mm3 (4.2-5.4); Scan Indicated on CBC? Y/N NO; White Blood Count 8.4 K/mm3 (4.4-11.0)
[2018-06-16] MEDS: Oxytocin 30 units/NS 500 ml 30 UNITS/500 ML IV.SOLN 334 UNITS IV (07:40)
[2018-06-16] MEDS: Ketorolac 30 MG/ML Syringe IV (07:41)
--- NOTE | 2018-06-16 07:47 | PCM.OB.VAG ---
Vaginal Delivery Maternal Presentation: Active Labor 38 5/7 wk presents with advanced cervical dilation. GBS positive, wanting epidural. Amniotic Membrane Rupture Type: Artificial Amniotic Fluid Description: Clear Final MIKAEL: 06/25/18 Gestational age: 38 Weeks and 5 Days Date of Procedure: 06/16/18 Pre-Operative Diagnosis: 38 5/7 wk labor Post-Operative Diagnosis: 38 5/7 wk labor Surgery/ Procedure Performed: Spontaneous Vaginal Delivery Type of Anesthesia: None Description of Procedure: GBS positive. Hoping for epidural but 7-8 cm at presentation. Progressed to fully dilated with BBOW. AROM clear. of a montaño viable male Ap 9/ Head delivered OA. Nuchal cord x one reduced. Shoulders delivered easily. to maternal abdomen for stimulation. Vigorous cry. Delayed cord clamping, Cord then clamped x two and cut. Routine cord blood for typing. PP exam: no lacerations Placenta delivered b y spont expulsion, expression. 3V cord, normal appearing, intact with trailing membranes EBL 350 cc Pt and infant tolerated delivery well. to recovery in sstable condition. Ray Jorge counts correct x two. Presentation: Vertex Placental Delivery Description: Spontaneous, Expressed Placenta Disposition: [facility] Cord Vessel Description: 3 Vessels Nuchal Cord Compression: Without compression Cord Entanglement: Around neck x 1, loose Estimated Blood Loss: 350 A gender: Male (1 minute): 9 (5 minute): 9 Episiotomy Description: None Laceration: None Medications given after delivery: IV Pitocin, - - Toradol 30 mg IV x one for cramping Complications: None
--- NOTE | 2018-06-16 07:53 | OP.PCM_ITS ---
Vaginal Delivery Maternal Presentation: Active Labor 38 5/7 wk presents with advanced cervical dilation. GBS positive, wanting epidural. Amniotic Membrane Rupture Type: Artificial Amniotic Fluid Description: Clear Final MIKAEL: 06/25/18 Gestational age: 38 Weeks and 5 Days Date of Procedure: 06/16/18 Pre-Operative Diagnosis: 38 5/7 wk labor Post-Operative Diagnosis: 38 5/7 wk labor Surgery/ Procedure Performed: Spontaneous Vaginal Delivery Type of Anesthesia: None Description of Procedure: GBS positive. Hoping for epidural but 7-8 cm at presentation. Progressed to fully dilated with BBOW. AROM clear. of a montaño viable male Ap 05/12 Head delivered OA. Nuchal cord x one r educed. Shoulders delivered easily. to maternal abdomen for stimulation. Vigorous cry. Delayed cord clamping, Cord then clamped x two and cut. Routine cord blood for typing. PP exam: no lacerations Placenta delivered b y spont expulsion, expression. 3V cord, normal appearing, intact with trailing membranes EBL 350 cc Pt and infant tolerated delivery well. to recovery in sstable condition. Ray Jorge counts correct x two. Presentation: Vertex Placental Delivery Description: Spontaneous, Expressed Placenta Disposition: [facility] Cord Vessel Description: 3 Vessels Nuchal Cord Compression: Without compression Cord Entanglement: Around neck x 1, loose Estimated Blood Loss: 350 Infant A gender: Male (1 minute): 9 (5 minute): 9 Episiotomy Description: None Laceration: None Medications given after delivery: IV Pitocin, - - Toradol 30 mg IV x one for cramping Complications: None
--- NOTE | 2018-06-16 07:56 | PCM.DCVAG ---
Discharge Diet: No Restrictions Return to work on:: 07/29/18 May resume sexual activity in: 4-6 weeks Additional Activity Instructions:: Nothing in the vagina for 4-6 weeks. You may return to work/school in 6 weeks. Additional Instructions: If you experience any of the following, contact your healthcare provider. Bleeding that soaks a pad every hour for 2 hours Fever 100.4 or higher Unrelieved abdominal pain Problems urinating (including inability to urinate or burning while urinating). Visual changes Severe headache Flu-like symptoms Pain or redness in one of both of your breasts Pain, warmth, tenderness or swelling in your legs, especially the calf area Frequent nausea and vomiting Symptoms of depression or anxiety If you experience any of the following, call 911 or go to the nearest Emergency Room. Chest pain Problems breathing Seizure activity Partial or complete paralysis of a body part, slurred speech, weakness or drooping of the face, or a sudden inability to walk or hold your balance Allergies/Adverse Reactions: Allergies No Known Allergies Allergy (Verified 06/16/18 07:02) Medications to take at Discharge Gummies 1 tablet PO DAILY 07/04/17 Please Follow Up With: Francine Dior MD - [phone] When: Call to make an appointment with your doctor in 6 weeks. Primary Care Physician: Care Physician,No Primary [Primary Care Provider] - Test Results: Test results from this visit will be discussed in further detail at your follow-up appointment, if applicable. Proposed Discharge Date: 06/18/18
--- NOTE | 2018-06-16 07:57 | DCINST_ITS ---
Discharge Diet: No Restrictions Return to work on:: 07/29/18 May resume sexual activity in: 4-6 weeks Additional Activity Instructions:: Nothing in the vagina for 4-6 weeks. You may return to work/school in 6 weeks. Additional Instructions: If you experience any of the following, contact your healthcare provider. * Bleeding that soaks a pad every hour for 2 hours * Fever 100.4 or higher * Unrelieved abdominal pain * Problems urinating (including inability to urinate or burning while urinating). * Visual changes * Severe headache * Flu-like symptoms * Pain or redness in one of both of your breasts * Pain, warmth, tenderness or swelling in your legs, especially the calf area * Frequent nausea and vomiting * Symptoms of depression or anxiety If you experience any of the following, call 911 or go to the nearest Emergency Room. * Chest pain * Problems breathing * Seizure activity * Partial or complete paralysis of a body part, slurred speech, weakness or drooping of the face, or a sudden inability to walk or hold your balance Allergies/Adverse Reactions: Allergies No Known Allergies Allergy (Verified 06/16/18 07:02) Medications to take at Discharge Gummies 1 tablet PO DAILY 07/04/17 Please Follow Up With: Francine Dior MD - [phone] When: Call to make an appointment with your doctor in 6 weeks. Primary Care Physician: Care Physician,No Primary [Primary Care Provider] - Test Results: Test results from this visit will be discussed in further detail at your follow- up appointment, if applicable. Proposed Discharge Date: 06/18/18
[2018-06-16] MEDS: Oxytocin 30 units/NS 500 ml 30 UNITS/500 ML IV.SOLN 167 UNITS IV (08:10)
[2018-06-16] MEDS: Methylergonovine 0.2 MG/ML Ampul IM (08:41)
[2018-06-16 10:20] VITALS: BP 127/72; PULSE 85; RESP 16; TEMP 37; O2SAT 100
[2018-06-16] MEDS: 0.9% Saline Lock 10 ML Syringe IV (10:40)
[2018-06-16 12:00] VITALS: BP 106/67; PULSE 94; RESP 16; TEMP 37.1
--- NOTE | 2018-06-16 14:08 | NURSING ---
1145 fundus 1/u and shifted to right. Up to void 400 cc. Fundus u/2 and firm with massage. Fundal massage taught to patient and instructed to call RN witb any increase in bleeding or passage of clots.
[2018-06-16 16:00] VITALS: BP 130/83; PULSE 85; RESP 16; TEMP 36.4
[2018-06-16 20:00] VITALS: BP 103/80; PULSE 94; RESP 18; TEMP 37.3
[2018-06-17 00:24] VITALS: BP 135/89; PULSE 85; RESP 18; TEMP 37.3
[2018-06-17] MEDS: 0.9% Saline Lock 10 ML Syringe IV (03:30)
[2018-06-17 03:44] VITALS: BP 114/75; PULSE 89; RESP 16; TEMP 37.1
[2018-06-17 08:00] VITALS: BP 135/84; PULSE 92; RESP 16; TEMP 36.9; O2SAT 96
--- NOTE | 2018-06-17 08:06 | PCM.PN.OB ---
Subjective: PPD#1 doing well. Nursing. Baby cluster fed all night. Passed a clot this am after getting up out of bed. - Physical Exam General: Alert, Oriented x3, Cooperative, No apparent distress HEENT: Atraumatic Neck: Supple Abdomen: Soft - Fundus firm NT approx 2 cm inferior to umbilicus Neurological: Cranial nerves II-XII grossly intact Psych/Mental Status: Normal Affect Vital Signs Temp Pulse Resp BP Pulse Ox 98.8 F 89 16 114/75 100 06/17/18 03:44 06/17/18 03:44 06/17/18 03:44 06/17/18 03:44 06/16/18 10:20 Oxygen Delivery Method Room Air Weight: 64 kg Body Mass Index (BMI) 25.8 Intake and Output for Last 24 Hours 06/15/18 06/16/18 06/17/18 23:59 23:59 23:59 Intake Total 1242 / 1242 Output Total 1300 / 1300 Balance -58 / -58 Laboratory Tests Past 24 Hrs 06/16/18 06/16/18 06:55 09:30 Blood Type O NEGATIVE Antibody Screen NEGATIVE Screen NEGATIVE Baby's Blood Type A POSITIVE Baby's KINZA POSITIVE Medical Necessity - Tobacco Use Smoking Status: Never smoker Assessment/Plan All Active Problems Missed (Acute) PPD#1 Stable pp. Continue care. GBS positive. Plan for dischg home tomorrow on PPD#2
[2018-06-17] MEDS: Naproxen 250 MG Tablet PO (08:13)
[2018-06-17 13:15] VITALS: BP 102/71; PULSE 86; RESP 16; TEMP 36.8; O2SAT 96
[2018-06-17 20:25] VITALS: BP 111/66; PULSE 96; RESP 16; TEMP 36.6; O2SAT 96
[2018-06-18 01:58] VITALS: BP 102/62; PULSE 85; RESP 16; TEMP 36.8; O2SAT 98
--- NOTE | 2018-06-18 08:23 | PCM.PN.OB ---
Subjective: PPD#2 Doing well. Breast feeding. Asking about bleeding to expect in next few weeks. Some inc when nursing. - Physical Exam General: Alert, Oriented x3, Cooperative, No apparent distress HEENT: Atraumatic Neck: Supple Abdomen: Soft - Fundus firm NT inferior to umbilicus Neurological: Cranial nerves II-XII grossly intact Psych/Mental Status: Normal Affect Vital Signs Temp Pulse Resp BP Pulse Ox 98.3 F 85 16 102/62 98 06/18/18 01:58 06/18/18 01:58 06/18/18 01:58 06/18/18 01:58 06/18/18 01:58 Oxygen Delivery Method Room Air Weight: 64 kg Body Mass Index (BMI) 25.8 Intake and Output for Last 24 Hours 06/16/18 06/17/18 06/18/18 23:59 23:59 23:59 Intake Total 1242 / 1242 Output Total 1300 / 1300 Balance -58 / -58 Medical Necessity - Tobacco Use Smoking Status: Never smoker Assessment/Plan All Active Problems Missed (Acute) PPD#2 Stable pp. Stable pp. Dischg home today RTO in 6 wk for pp check, prn sooner.
[2018-06-18 08:39] VITALS: BP 124/81; PULSE 86; RESP 16; TEMP 36.6
[2018-06-18 16:00] VITALS: BP 120/86; PULSE 108; RESP 18; TEMP 36.6
== END 2018-06-18 17:20 | disposition home or self-care (01) | DRG 807 ==
PROVIDERS: Admitting Provider Obstetrics & Gynecology; Visit Provider Obstetrics & Gynecology
DX: O99.824 Streptococcus B carrier state complicating childbirth (principal); O69.81X0 Labor and delivery complicated by cord around neck, without compression, not applicable or unspecified; Z3A.38 38 weeks gestation of pregnancy; Z37.0 Single live birth
CPT/HCPCS: 59050; 85027; 85461; 86850; 86900; 90384; 99218; J7120; 90686; A4216; G0378; J2790

== ENCOUNTER → 2019-08-28 | Outpatient (CLI) | payer OTHER, SELFPAY ==
[2019-09-02 09:36] LABS: Age Gdln ACOG Testing 30-65 (.)
[2019-09-02 15:44] LABS: HPV APTIMA, High Risk Negative (Negative); HPV Reflexed? YES, CHARGE PATIENT
== END | disposition home or self-care (01) ==
LOC: LABSPEC 14:37
PROVIDERS: Referring Provider Advanced Practice Midwife; Visit Provider Advanced Practice Midwife
DX: Z12.4 Encounter for screening for malignant neoplasm of cervix (principal)
CPT/HCPCS: 87624; 88175; G0145

== ENCOUNTER 2021-10-31 12:39 | Outpatient (CLI) | payer OTHER, SELFPAY ==
--- NOTE | 2021-10-31 12:43 | BI_ITS ---
MAMMOGRAPHY - BILATERAL SCREENING REASON FOR EXAM: Female, 41 years old. Routine annual screening examination. PERTINENT HISTORY: Aunt with breast cancer. TECHNIQUE: Digital bilateral breast harman (3D mammographic acquisition) in the CC and MLO projections. 2-D mediolateral oblique (MLO) and craniocaudad (CC) views of both breasts were obtained. CAD: Full Field Digital Mammography with Computer Added Detection was performed. COMPARISON: None. Baseline examination. FINDINGS: Breast Composition: The breasts are extremely dense, which lowers the sensitivity of mammography. There are no dominant masses or suspicious calcifications. No other significant abnormalities are identified. BI/SCRN MAMM (CAD)W/HARMAN BILAT IMPRESSION: Negative screening mammogram. Yearly followup mammogram recommended. (A) ASSESSMENT CATEGORY: BIRADS Category 1: Negative. A letter regarding these results will be sent to the patient by the facility within 30 days. Approximately 10% of breast cancers are not detected by mammography. A normal mammogram should not delay biopsy of a clinically suspicious abnormality. [id number] Electronically Signed: Broderick Johnson MD at 13:31 EST ,
== END 2021-10-31 23:59 | disposition home or self-care (01) ==
LOC: OPBI 12:41
PROVIDERS: Referring Provider Student in an Organized Health Care Education/Training Program; Visit Provider Student in an Organized Health Care Education/Training Program
DX: Z12.31 Encounter for screening mammogram for malignant neoplasm of breast (principal)
CPT/HCPCS: 77063; 77067

== ENCOUNTER 2021-12-05 13:15 | Outpatient (CLI) | payer OTHER, SELFPAY ==
[2021-12-13 13:50] LABS: HPV APTIMA, High Risk Negative (Negative)
== END 2021-12-05 23:59 | disposition home or self-care (01) ==
LOC: LABSPEC 13:17
PROVIDERS: Visit Provider Student in an Organized Health Care Education/Training Program
DX: Z12.4 Encounter for screening for malignant neoplasm of cervix (principal)
CPT/HCPCS: 87624; 88175; G0145

== ENCOUNTER → 2023-02-22 | Outpatient (CLI) | payer OTHER, SELFPAY ==
--- NOTE | 2023-02-22 08:48 | BI_ITS ---
MAMMOGRAPHY - BILATERAL SCREENING REASON FOR EXAM: Female, 42 years old. Routine annual screening examination. PERTINENT HISTORY: Aunt with breast cancer. TECHNIQUE: Digital bilateral breast harman (3D mammographic acquisition) in the CC and MLO projections. 2-D mediolateral oblique (MLO) and craniocaudad (CC) views of both breasts were obtained. CAD: Full Field Digital Mammography with Computer Added Detection was performed. COMPARISON: Mammogram from 10/23/2021. FINDINGS: Breast Composition: The breasts are extremely dense, which lowers the sensitivity of mammography. There are no dominant masses or suspicious calcifications. No other significant abnormalities are identified. There has been no significant change since the prior study. BI/SCRN MAMM (CAD)W/HARMAN BILAT IMPRESSION: Stable bilateral screening mammogram. Yearly follow-up mammogram recommended. (A) ASSESSMENT CATEGORY: BIRADS Category 1: Negative. A letter regarding these results will be sent to the patient by the facility within 30 days. Approximately 10% of breast cancers are not detected by mammography. A normal mammogram should not delay biopsy of a clinically suspicious abnormality. Electronically Signed: Aric Argueta DO at 16:24 EDT ,
== END | disposition home or self-care (01) ==
LOC: OPBI 08:47
PROVIDERS: Referring Provider Student in an Organized Health Care Education/Training Program; Visit Provider Student in an Organized Health Care Education/Training Program
DX: Z12.31 Encounter for screening mammogram for malignant neoplasm of breast (principal)
CPT/HCPCS: 77063; 77067